=== PATIENT | male | born 1945 | race Caucasian/White ===

== ENCOUNTER 2016-07-03 08:26 | Emergency (ER) | payer MEDICARE, OTHER ==
[2016-07-03 09:02] VITALS: BP 139/45
[2016-07-03] MEDS ORDERED: Diphtheria,Pertussis(Acell),Tetanus Vaccine 0.5 ML Syringe IM ONE (09:23)
[2016-07-03] MEDS ORDERED: ceFAZolin 1 GM Vial IVPUSH ONE (09:30)
[2016-07-03] MEDS ORDERED: Sodium Chloride 0.9% 10 ML Syringe FLUSH PRN (09:30)
[2016-07-03] MEDS ORDERED: Lidocaine 1% 30 ML SDV INJECT ONE (09:37)
--- NOTE | 2016-07-05 14:08 | ER ---
Date of Service: 07/03/2016 SUBJECTIVE: Thuan presents to the emergency room with injury to the middle finger of his right hand. The patient states that he dropped a several hundred pounds spool onto his finger when he was attempting to get out of the back of his pickup. He states that he did this close to 24 hours before presenting to the emergency room. He states that he did attempt to wash it with warm water, but it was extremely painful. The patient subsequently presented to the emergency room the next day, as he wanted to "wait for the swelling to go down." The patient states that his tetanus is out of date. He states that he has had a full course of tetanus shots in the past, but he is quite sure it is close to or 10 years since he has had his last tetanus. PAST MEDICAL HISTORY: 1. Osteoarthritis. 2. Chronic left shoulder pain. 3. Hyperlipidemia. 4. Anxiety. 5. Depression. 6. Closed head injury. 7. Chronic constipation. 8. Dyslipidemia. MEDICATIONS: 1. Help Your Eyes eyedrops. 2. Pregabalin. 3. [place]-3 fatty acid. 4. Multivitamin. 5. Meloxicam. 6. Magnesium oxide. 7. Milk of magnesia. 8. Licorice root. 9. [place] 10/325. 10.[place] biloba. 11.Folic acid. 12.Stool softener. 13.Cymbalta. 14.Baclofen. 15.Acai berries. ALLERGIES: Shellfish, poultry, beef, pork, penicillin, and fish. REVIEW OF SYSTEMS: Denies any injury other than was isolated to the index finger of the right hand. He denies any injure other than was isolated to the middle finger of the right hand. PHYSICAL EXAMINATION: General: This is a 71-year-old male patient, who is in no acute distress. Vital Signs: Blood pressure is 139/45, temperature is 36.1, pulse rate 65, O2 saturations 96%. Musculoskeletal: The patient has a crush-type injury to the middle finger of the right hand. The finger is split longitudinally along the pad of the finger. He also does have an approximately 40% subungual hematoma to the medial aspect of the fingernail. The tissue is extremely edematous, and there is a large amount of tissue extending outside of the finger. Neurovascular: The patient is able to move the extremity without difficulty. RADIOGRAPHIC DATA: Radiographs of the patient's finger does reveal a fracture of the tuft of the third digit of the right hand. EMERGENCY ROOM COURSE: The laceration was irrigated with a liter of normal saline with added chlorhexidine. A digital block was placed in the base of the finger. The patient's hand was prepped and draped in the usual sterile fashion. There was a large amount of redundant tissue that was excised from the open portion of the crush injury. When the excised tissue was removed down to viable tissue, a total of 2 moderately tight sutures were used to reapproximate the crush injury as best as possible. The patient tolerated this well. He remained stable under my care in the emergency room. ASSESSMENT: Crush injury with approximately 2 cm open laceration to tip and dorsum of right middle finger. PLAN: I did speak with Dr. Perkins, the hand surgeon at [facility] regarding this patient prior to closure of the injury. He advised to debride the redundant and soiled material from the finger and reapproximate it as best as possible, stating that the finger would need to heal via secondary intention. A moist dressing was placed on the laceration. The patient was advised to follow up in the clinic on for a dressing change. IV access was established, and the patient was given 2 g of Ancef IV. He was given Tdap injection. Followup appointment with Hand surgery was established for the patient in 1 week. Followup appointment with his primary care provider was established in 1 week. All questions were answered. MWK: 07/05/2016 07:26:38 MODL: 07/05/2016 14:01:24 /[id number]
== END 2016-07-03 10:38 | disposition home or self-care (01) ==
LOC: VM.ED 08:26
DX: S62.632A Displaced fracture of distal phalanx of right middle finger, initial encounter for closed fracture (principal); S61.212A Laceration without foreign body of right middle finger without damage to nail, initial encounter; F41.9 Anxiety disorder, unspecified; F32.9 Major depressive disorder, single episode, unspecified; E78.5 Hyperlipidemia, unspecified; X58.XXXA Exposure to other specified factors, initial encounter
CPT/HCPCS: 12041; 73140; 90715; 96374; 99283; J0690

== ENCOUNTER 2016-07-15 13:07 | Emergency (ER) | payer MEDICARE, BC ==
[2016-07-15 13:28] VITALS: BP 151/70
--- NOTE | 2016-07-15 14:09 | EDM.PDOC ---
ED HPI GENERAL MEDICAL PROBLEM - General Chief Complaint: General Stated Complaint: LACERATION TO FINGER Time Seen by Provider: 07/15/16 13:09 Source of Information: Reports: Patient, RN, RN notes reviewed History Limitations: Reports: No limitations - History of Present Illness INITIAL COMMENTS - FREE TEXT/NARRATIVE: Patient presents to the ED at [facility] with concerns of non-healing wound to tip of right middle finger. Patient was seen in this ER a couple of weeks ago when he lacerated the finger. Sutures were placed. Patient was told to follow up with his PCP for recheck and possible suture removal. Patient states he did not make that appointment. Suture have been in place for well over 10 days. Today the patient was washing dishes, when he removed the dish glove, one of the suture dislodged. Patient is concerned and would like the would rechecked today. Right Middle 3-Middle finger Pain Score (Numeric/FACES): 9 - Related Data Allergies Allergy/AdvReac Type Severity Reaction Status Date / Time fish derived Allergy Anaphylactic Verified 07/15/16 13:17 Shock Penicillins Allergy Rash Verified 07/15/16 13:17 pork derived (porcine) Allergy Anaphylactic Verified 07/15/16 13:17 Shock beef derived products Allergy Anaphylactic Uncoded 07/15/16 13:17 Shock poultry Allergy Anaphylactic Uncoded 07/15/16 13:17 Shock shellfish -derived products Allergy Anaphylactic Uncoded 07/15/16 13:17 Shock Home Meds: Home Meds Acai Conti Extract [Acai Conti] 1 tab PO BID 06/09/13 [History] Docusate Sodium [Stool Softener] 400 mg PO BEDTIME 06/09/13 [History] Folic Acid 800 mcg PO DAILY 06/09/13 [History] Ginkgo Biloba 1 tab PO DAILY 06/09/13 [History] Multivitamin [Multi-Vitamin Daily] 1 each PO DAILY 06/09/13 [History] Baclofen 10 mg PO BID PRN 05/02/15 [History] DULoxetine [Cymbalta] 60 mg PO BID 05/02/15 [History] Magnesium Hydroxide [Milk of Magnesia] 30 ml PO BEDTIME PRN 03/30/16 [History] Pregabalin [Lyrica] 300 mg PO TID 03/30/16 [History] Dietary Supplement [Hyprost] 1 cap PO DAILY 04/17/16 [History] Hydrocodone/Acetaminophen [[place] 10-325 Tablet] 1 tab PO BID 04/17/16 [History] Licorice Root Extract [Licorice Root] 1 cap PO DAILY PRN 04/17/16 [History] Magnesium Oxide [Magnesium] 1 tab PO BID 04/17/16 [History] Melatonin 20 - 30 mg PO BEDTIME PRN 04/17/16 [History] [place]-3 Fatty Acids [Fish Oil] 300 mg PO DAILY 04/17/16 [History] Vit A,C & E/Lutein/Minerals [Healthy Eyes] 1 cap PO BID 04/17/16 [History] prednisoLONE Acetate [Prednisolone Acetate] 1 drop EYELF BID 04/17/16 [History] Meloxicam, Submicronized [Vivlodex] 10 mg BID 07/03/16 [History] Past Medical History HEENT History: Reports: Cataract Cardiovascular History: Reports: High cholesterol Respiratory History: Reports: None Gastrointestinal History: Reports: Chronic constipation Genitourinary History: Reports: None Musculoskeletal History: Reports: Osteoarthritis Neurological History: Reports: Concussion Psychiatric History: Reports: Addiction, Anxiety, Depression Other Psychiatric History: opiod addiction/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- [facility] [place] Endocrine/Metabolic History: Reports: None Hematologic History: Reports: Anemia Oncologic (Cancer) History: Reports: None Dermatologic History: Reports: Decubitus ulcer - Past Surgical History Head Surgeries/Procedures: Reports: None HEENT Surgical History: Reports: Cataract surgery, Other (see below) Other HEENT Surgeries/Procedures: left eye cataract removal 2007 Cardiovascular Surgical History: Reports: None Respiratory Surgical History: Reports: None Male Surgical History: Reports: Vasectomy Neurological Surgical History: Reports: None Musculoskeletal Surgical History: Reports: Arthroscopic procedure, Shoulder surgery, Other (see below) Other Musculoskeletal Surgeries/Procedures:: arthoscopic rotator cuff repair to left 1996. arthoscopic rotator cuff repair to right 1981. arthoplasty elbow total prosthetic replacement 2004. shoulder arthoplasty right 10/27/2013. steriod epidural 02/14/2016 - Past Imaging History Past Imaging History: Reports: CAT scan (Brain and cervical spine on 04/12/15), Stress testing (Exercise stress test in the 1970s), Venous doppler (Left leg on 02/14/12 and 11/15/11) Social & Family History - Family History Family Medical History: Noncontributory - Tobacco Use Smoking Status *Q: Unknown Ever Smoked Second Hand Smoke Exposure: No - Caffeine Use Caffeine Use: Reports: None - Alcohol Use Days Per Week of Alcohol Use: 0 (No previous DWIs, problems with alcohol abuse, etc.) Number of Drinks Per Day: 0 Total Drinks Per Week: 0 - Recreational Drug Use Recreational Drug Use: No Drug Use in Last 12 Months: No Recreational Drug Type: Reports: Other (see below) Recreational Drug Use Frequency: Daily - Living Situation & Occupation Living situation: Reports: (1982 second with no children from this marriage, from first in about 1981 with 4 children from that marriage) 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[employer]) ED ROS GENERAL - Review of Systems Review Of Systems: See Below Constitutional: Denies: fever, chills, weakness Respiratory: Denies: shortness of breath, cough Cardiovascular: Denies: Chest pain, Palpitations Skin: Reports: wound (right tip middle finger) Neurological: Reports: no symptoms ED EXAM, GENERAL - Physical Exam Exam: See Below Exam Limited By: No limitations General Appearance: alert, no apparent distress Respiratory/Chest: no respiratory distress, lungs clear, normal breath sounds Cardiovascular: regular rate, rhythm Neurological: alert, oriented Skin Exam: Warm, Dry, Normal color, No rash, Wound/incision (tip of right middle finger; unable to measure; one suture removed; wound is healing; no evidence of infection) Course - Vital Signs Last Recorded V/S: Last Vital Signs Temp 36.3 C 07/15/16 13:10 Pulse 73 07/15/16 13:10 Resp 16 07/15/16 13:10 BP 151/70 H 07/15/16 13:10 Pulse Ox - Orders/Labs/Meds Orders: Active Orders 24 hr Category Date Time Status Fingers Third Digit Rt F7 [CR] Stat Exams 07/15/16 13:30 Taken - Radiology Interpretation Free Text/Narrative:: There is a minimally displaced fracture of the distal tuft of the distal phalanx of the right middle finger. No additional fractures are seen. No subluxation or dislocation is seen. Stable arthritic changes are seen of the 3rd metacarpophalangeal joint. Departure - Departure Time of Disposition: 14:09 Disposition: Home, Self-Care 01 Condition: good Clinical Impression: Laceration of finger Qualifiers: Encounter type: initial encounter Qualified Code(s): S61.219A - Laceration without foreign body of unspecified finger without damage to nail, initial encounter Wound dehiscence, traumatic injury repair Qualifiers: Encounter type: initial encounter Qualified Code(s): T81.33XA - Disruption of traumatic injury wound repair, initial encounter Instructions: Laceration Care, Adult, Wound Dehiscence Forms: ED Department Discharge Additional Instructions: 1. See your Primary as symptoms warrant 2. Keep finger clean and dry - Problem List Review Problem List Initiated/Reviewed/Updated: Yes - My Orders Last 24 Hours: My Active Orders 07/15/16 13:30 Fingers Third Digit Rt F7 [CR] Stat - Assessment/Plan Last 24 Hours: My Active Orders 07/15/16 13:30 Fingers Third Digit Rt F7 [CR] Stat
== END 2016-07-15 14:18 | disposition home or self-care (01) ==
LOC: VM.ED 13:07
DX: T81.33XA Disruption of traumatic injury wound repair, initial encounter (principal); E78.00 Pure hypercholesterolemia, unspecified; M19.90 Unspecified osteoarthritis, unspecified site; F41.9 Anxiety disorder, unspecified; F32.9 Major depressive disorder, single episode, unspecified; D64.9 Anemia, unspecified; Z91.013 Allergy to seafood; Z88.0 Allergy status to penicillin; Z91.030 Bee allergy status; Z79.899 Other long term (current) drug therapy; Z98.42 Cataract extraction status, left eye; Z98.890 Other specified postprocedural states; Z88.8 Allergy status to other drugs, medicaments and biological substances
CPT/HCPCS: 73140-F7; 99282-GF; 99283

== ENCOUNTER 2017-10-12 18:07 | Emergency (ER) | payer MEDICARE, OTHER ==
[2017-10-12 18:18] VITALS: BP 129/83
[2017-10-12] MEDS ORDERED: Sulfamethoxazole/Trimethoprim 800-160 MG Tab PO ONE (19:54)
[2017-10-12] MEDS ORDERED: Take Home: Sulfamethoxazole/Trimethoprim 800-160 MG Tab, 2 Tab Pack PO ONE (19:59)
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
== END 2017-10-12 20:45 | disposition home or self-care (01) ==
LOC: VM.ED 18:07
DX: L08.9 Local infection of the skin and subcutaneous tissue, unspecified (principal); E78.00 Pure hypercholesterolemia, unspecified; F41.9 Anxiety disorder, unspecified; F32.9 Major depressive disorder, single episode, unspecified; D64.9 Anemia, unspecified; Z88.0 Allergy status to penicillin; Z91.013 Allergy to seafood; Z91.018 Allergy to other foods; Z79.899 Other long term (current) drug therapy
CPT/HCPCS: 36415; 84550; 85025; 86140; 99283; A9270; 87070; 87077

== ENCOUNTER 2020-09-19 17:05 | Emergency (ER) | payer MEDICARE, OTHER ==
--- NOTE | 2020-09-19 17:59 | EDM.PDOC ---
ED HPI GENERAL MEDICAL PROBLEM - General Chief Complaint: Respiratory Problem Stated Complaint: SOB Time Seen by Provider: 09/19/20 17:40 Source of Information: Reports: Patient, Family - History of Present Illness INITIAL COMMENTS - FREE TEXT/NARRATIVE: Ongoing cough shortness of breath left-sided rib pain since Saturday. Patient and state that they were seen Saturday at [facility] in [place] or they were diagnosed with Covid and told that he had Covid pneumonia. They were given a prescription for Decadron 4 mg 1 p.o. daily x10 days but states he did not have the money to get it filled. They deny any prescription for antibiotic. He states since being home the cough continues the shortness of breath is about the same it has not gotten any worse but he states the pain on the left side of the ribs has got little bit worse he rates it about a 5 out of 10 worse when he coughs or takes a deep breath. He denies any fatigue or malaise states he has been sleeping okay and eating okay He has no other complaints at this time Duration: Day(s): Location: Reports: Chest Improves with: Reports: Rest Worsens with: Reports: Other (cough ) Associated Symptoms: Reports: Cough, cough w sputum, Shortness of Breath. Denies: Confusion, Chest Pain, Diaphoresis, Fever/Chills, Headaches, Loss of Appetite, Malaise, Nausea/Vomiting, Rash, Seizure, Syncope, Weakness Left Thoracic Pain Score (Numeric/FACES): 5 - Related Data Allergies Allergy/AdvReac Type Severity Reaction Status Date / Time fish derived Allergy Anaphylactic Verified 09/19/20 18:38 Shock Penicillins Allergy Rash Verified 09/19/20 18:38 pork derived (porcine) Allergy Anaphylactic Verified 09/19/20 18:38 Shock beef derived products Allergy Anaphylactic Uncoded 09/19/20 18:38 Shock poultry Allergy Anaphylactic Uncoded 09/19/20 18:38 Shock shellfish -derived products Allergy Anaphylactic Uncoded 09/19/20 18:38 Shock Home Meds: Home Meds Acai Conti Extract [Acai Conti] 1 tab PO BID 06/09/13 [History] Docusate Sodium [Stool Softener] 400 mg PO BEDTIME 06/09/13 [History] Folic Acid 800 mcg PO DAILY 02/04/14 [History] Ginkgo Biloba 1 tab PO DAILY 06/09/13 [History] Multivitamin [Multi-Vitamin Daily] 1 each PO DAILY 06/09/13 [History] Baclofen 10 mg PO BID PRN 05/02/15 [History] DULoxetine [Cymbalta] 60 mg PO BID 05/02/15 [History] Magnesium Hydroxide [Milk of Magnesia] 30 ml PO BEDTIME PRN 03/30/16 [History] Pregabalin [Lyrica] 300 mg PO TID 03/30/16 [History] Dietary Supplement [Hyprost] 1 cap PO DAILY 04/17/16 [History] Hydrocodone/Acetaminophen [Parkin 10-325 Tablet] 1 tab PO BID 04/17/16 [History] Licorice Root Extract [Licorice Root] 1 cap PO DAILY PRN 04/17/16 [History] Magnesium Oxide [Magnesium] 1 tab PO BID 04/17/16 [History] Melatonin 20 - 30 mg PO BEDTIME PRN 04/17/16 [History] Whitman-3 Fatty Acids [Fish Oil] 300 mg PO DAILY 04/17/16 [History] Vits A,C,E/Lutein/Minerals [Healthy Eyes] 1 cap PO BID 04/17/16 [History] prednisoLONE Acetate [Prednisolone Acetate] 1 drop EYELF BID 04/17/16 [History] Meloxicam, Submicronized [Vivlodex] 10 mg BID 07/03/16 [History] Past Medical History HEENT History: Reports: Cataract Cardiovascular History: Reports: High Cholesterol Respiratory History: Reports: None Gastrointestinal History: Reports: Chronic Constipation Genitourinary History: Reports: None Musculoskeletal History: Reports: Osteoarthritis Neurological History: Reports: Concussion Psychiatric History: Reports: Addiction, Anxiety, Depression Other Psychiatric History: opiod addiction/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- pain contract current with [place], [place] Endocrine/Metabolic History: Reports: None Hematologic History: Reports: Anemia Oncologic (Cancer) History: Reports: None Dermatologic History: Reports: Decubitus Ulcer - Infectious Disease History Infectious Disease History: Reports: MRSA - Past Surgical History Head Surgeries/Procedures: Reports: None HEENT Surgical History: Reports: Cataract Surgery, Other (See Below) Respiratory Surgical History: Reports: None GI Surgical History: Reports: Appendectomy, Hernia, Inguinal Male Surgical History: Reports: Vasectomy Neurological Surgical History: Reports: None Musculoskeletal Surgical History: Reports: Arthroscopic Procedure, Shoulder Surgery, Other (See Below) - Past Imaging History Past Imaging History: Reports: CAT Scan, Stress Testing, Venous Doppler Social & Family History - Family History Family Medical History: No Pertinent Family History - Caffeine Use Caffeine Use: Reports: None - Living Situation & Occupation Living situation: Reports: Occupation: Employed ED ROS GENERAL - Review of Systems Review Of Systems: See Below Constitutional: Reports: No Symptoms. Denies: Fever, Chills, Malaise, Weakness, Fatigue HEENT: Reports: No Symptoms Respiratory: Reports: Shortness of Breath, Pleuritic Chest Pain, Cough, Sputum. Denies: Wheezing, Hemoptysis Cardiovascular: Reports: No Symptoms Endocrine: Reports: No Symptoms GI/Abdominal: Reports: No Symptoms : Reports: No Symptoms Musculoskeletal: Reports: No Symptoms Skin: Reports: No Symptoms Neurological: Reports: No Symptoms Psychiatric: Reports: No Symptoms Hematologic/Lymphatic: Reports: No Symptoms Immunologic: Reports: No Symptoms ED EXAM, GENERAL - Physical Exam Exam: See Below Exam Limited By: No Limitations General Appearance: Alert, WD/WN, No Apparent Distress, Other (Patient walks into the emergency room no acute distress no respiratory issues noted) Eye Exam: Bilateral Eye: EOMI, Normal Inspection, PERRL Ears: Normal External Exam, Normal Canal, Hearing Grossly Normal, Normal TMs Nose: Normal Inspection, Normal Mucosa, No Blood Throat/Mouth: Normal Inspection, Normal Lips, Normal Teeth, Normal Gums, Normal Oropharynx, Normal Voice, No Airway Compromise Head: Atraumatic, Normocephalic Neck: Normal Inspection, Supple, Non-Tender, Full Range of Motion Respiratory/Chest: No Respiratory Distress, Lungs Clear, Normal Breath Sounds, No Accessory Muscle Use, Chest Non-Tender Cardiovascular: Normal Peripheral Pulses, Regular Rate, Rhythm, No Edema, No Gallop, No JVD, No Murmur, No Rub GI/Abdominal: Normal Bowel Sounds, Soft, Non-Tender, No Organomegaly, No Distention Back Exam: Normal Inspection, Full Range of Motion Extremities: Normal Inspection, Normal Range of Motion, Non-Tender, No Pedal Edema, Normal Capillary Refill Neurological: Alert, Oriented, CN II-XII Intact, Normal Cognition, Normal Gait, Normal Reflexes, No Motor/Sensory Deficits Psychiatric: Normal Affect, Normal Mood Skin Exam: Warm, Dry, Intact, Normal Color, No Rash Lymphatic: No Adenopathy Course - Vital Signs Text/Narrative:: CBC BMP chest x-ray Lab work within normal limits Chest x-ray shows mild patchy bilateral infiltrates We will treat patient with Rocephin 1 g IM daily Zithromax 500 mg p.o. today Decadron 8 mg IM today will be given a prescription for Zithromax 251 p.o. daily x4 days he has a prescription for Decadron which he has not filled yet for 10 days He will also be given a prescription for albuterol inhaler 1 to 2 puffs every 4 to 6 hours as needed dispense #1 Last Recorded V/S: Last Vital Signs Temp 36.3 C 09/19/20 17:35 Pulse 98 09/19/20 17:35 Resp 20 09/19/20 17:35 BP 136/91 H 09/19/20 17:35 Pulse Ox 98 09/19/20 17:35 - Orders/Labs/Meds Labs: Laboratory Tests 09/19/20 09/19/20 Range/Units 18:10 18:10 WBC 4.9 (4.0-10.0) x10^3/uL RBC 5.37 (4.5-6.0) x10^6/uL Hgb 16.1 (14.0-18.0) g/dL Hct 46.9 (40.0-52.0) % MCV 87.3 (78.0-93.0) fL MCH 30.0 (26.0-32.0) pg MCHC 34.3 (32.0-36.0) g/dL RDW Coeff of Preeti 15.1 H (10.0-15.0) % Plt Count 94 L (130-400) x10^3/uL Neut % (Auto) 64.0 (50.0-80.0) % Lymph % (Auto) 22.0 L (25.0-50.0) % [place] % (Auto) 13.2 H (2.0-11.0) % Eos % (Auto) 0.6 (0.0-4.0) % Baso % (Auto) 0.2 (0.2-1.2) % Sodium 134 L (136-145) mmol/L Potassium 3.9 (3.5-5.1) mmol/L Chloride 98 (98-107) mmol/L Carbon Dioxide 23 (21-32) mmol/L Anion Gap 16.9 H (5-15) mmol/L BUN 16 (7-18) mg/dL Creatinine 1.2 (0.70-1.30) mg/dL Est Cr Clr Drug Dosing TNP Estimated GFR (MDRD) 59 Glucose 96 (70-99) mg/dL Calcium 8.4 L (8.5-10.1) mg/dL Meds: Medications Discontinued Medications Generic Name Dose Route Start Last Admin Trade Name Jose PRN Reason Stop Dose Admin Azithromycin 500 mg 09/19/20 19:23 Azithromycin 250 Mg Tab PO 09/19/20 19:24 ONETIME ONE Ceftriaxone Sodium 1 gm 09/19/20 19:23 Ceftriaxone 1 Gm Vial IM 09/19/20 19:24 ONETIME ONE Dexamethasone 8 mg 09/19/20 19:23 Dexamethasone 4 Mg/Ml Sdv IM 09/19/20 19:24 ONETIME ONE Departure - Departure Time of Disposition: 19:30 Disposition: Home, Self-Care 01 Condition: Good Clinical Impression: Pneumonia, Cough - Discharge Information *PRESCRIPTION DRUG MONITORING PROGRAM REVIEWED*: No *COPY OF PRESCRIPTION DRUG MONITORING REPORT IN PATIENT LUZ: No Instructions: Shortness of Breath, Adult, [id number], Community-Acquired Pneumonia, Adult Referrals: Montez Etienne PA [Primary Care Provider] - Forms: ED Department Discharge Sepsis Event Note (ED) - Focused Exam Vital Signs: Vital Signs Temp Pulse Resp BP Pulse Ox 09/19/20 17:35 36.3 C 98 20 136/91 H 98 - Problem List & Annotations (1) Cough SNOMED Code(s): 76776489 Code(s): R05 - COUGH Status: Acute Current Visit: Yes (2) Pneumonia SNOMED Code(s): 469134182 Code(s): J18.9 - PNEUMONIA, UNSPECIFIED ORGANISM Status: Acute Current Visit: Yes
[2020-09-19 18:34] LABS: CHLORIDE,CL 98 mmol/L (98-107); SODIUM,NA 134 mmol/L (136-145)
[2020-09-19 18:35] VITALS: BP 136/91; PULSE 98
[2020-09-19 18:36] LABS: ANION GAP 16.9 mmol/L (5-15)
--- NOTE | 2020-09-19 19:11 | CR ---
[id number] RAD/RAD Chest PA or AP 1V EXAM: FRONTAL CHEST INDICATION: COUGH, COVID-19. COMPARISON: April 16, 2016. DISCUSSION: Mild patchy bilateral infiltrates compatible the clinical history of COVID 19 pneumonia. Bilateral shoulder arthroplasties. Normal heart size. No pleural effusions. IMPRESSION: 1. Mild patchy bilateral infiltrates. Renan Sellers MD 09/19/20 [id number] Thank you for allowing us to participate in the care of your patient.
[2020-09-19] MEDS: Dexamethasone 4 MG/ML SDV IM ONE (19:59)
[2020-09-19] MEDS: Azithromycin 250 MG Tab PO ONE (20:00)
[2020-09-19] MEDS: cefTRIAXone 1 GM Vial IM ONE (20:00)
[2020-09-19] MEDS ORDERED: Dexamethasone 4 MG/ML SDV ONE (20:05)
== END 2020-09-19 20:15 | disposition home or self-care (01) ==
LOC: VM.ED 17:05
DX: J18.9 Pneumonia, unspecified organism (principal); Z91.013 Allergy to seafood; Z88.0 Allergy status to penicillin; Z79.899 Other long term (current) drug therapy
CPT/HCPCS: 36415; 71045; 80048; 85025; 96372; 99284; 99285-25; A9270-GY; J0696; J1100

== ENCOUNTER 2020-09-22 10:48 | Inpatient (IN) | payer MEDICARE, OTHER ==
[2020-09-22] MEDS ORDERED: Morphine 4 MG/ML Syringe IVPUSH ONE (11:41)
[2020-09-22] MEDS ORDERED: Ondansetron 4 MG/2 ML SDV IVPUSH ONE (11:49)
[2020-09-22] MEDS ORDERED: Sodium Chloride 0.9% 1,000 ML IV ONE (12:11)
[2020-09-22 12:41] LABS: ANION GAP 14.7 mmol/L (5-15); CHLORIDE,CL 100 mmol/L (98-107); SODIUM,NA 138 mmol/L (136-145)
--- NOTE | 2020-09-22 12:41 | EDM.PDOC ---
ED HPI GENERAL MEDICAL PROBLEM - General Chief Complaint: General Stated Complaint: WEAKNESS-COVID Time Seen by Provider: 09/22/20 11:00 Source of Information: Reports: Patient History Limitations: Reports: No Limitations - History of Present Illness INITIAL COMMENTS - FREE TEXT/NARRATIVE: Pt. presents to ER with complaints of cough, chest congestion, L lateral chest pain, and shortness of breath. Pt. was seen in ER on 09/19 with complaints of similar symptoms. Pt. was diagnosed with covid 19 and was seen in [facility] on 09/17/2020 and was worked up and discharged. He has not had bamlanivimab or etesevimab during either hospitalization. Pt. states that he is not able to take care of himself at home. He states that he is too weak to walk or care for himself at home. He lives in [place], [place] and they have no transportation. EMS was summoned to transport the patient and his to the ER. Pt. did not require any supplemental O2 during transport. In reviewing his chart, it appears he gets care at both [facility] in [place] and [facility]. Pt. denies any substernal chest pain. No jaw, arm, neck or back pain. Denies any nausea or vomiting. He has been febrile. Denies any rashes. No headache or congestion. No nausea, vomiting, or diarrhea. Onset: Today Onset Date: 09/22/20 Associated Symptoms: Reports: Cough, Malaise, Shortness of Breath, Weakness Left Thoracic Pain Score (Numeric/FACES): 5 - Related Data Allergies Allergy/AdvReac Type Severity Reaction Status Date / Time fish derived Allergy Anaphylactic Verified 09/19/20 18:38 Shock Penicillins Allergy Rash Verified 09/19/20 18:38 pork derived (porcine) Allergy Anaphylactic Verified 09/19/20 18:38 Shock beef derived products Allergy Anaphylactic Uncoded 09/19/20 18:38 Shock poultry Allergy Anaphylactic Uncoded 09/19/20 18:38 Shock shellfish -derived products Allergy Anaphylactic Uncoded 09/19/20 18:38 Shock Home Meds: Home Meds Acai Conti Extract [Acai Conti] 1 tab PO BID 06/09/13 [History] Docusate Sodium [Stool Softener] 400 mg PO BEDTIME 06/09/13 [History] Folic Acid 800 mcg PO DAILY 06/09/13 [History] Ginkgo Biloba 1 tab PO DAILY 06/09/13 [History] Multivitamin [Multi-Vitamin Daily] 1 each PO DAILY 06/09/13 [History] Baclofen 10 mg PO BID PRN 05/02/15 [History] DULoxetine [Cymbalta] 60 mg PO DAILY 05/02/15 [History] Magnesium Hydroxide [Milk of Magnesia] 30 ml PO BEDTIME PRN 03/30/16 [History] Pregabalin [Lyrica] 300 mg PO TID 03/30/16 [History] Hydrocodone/Acetaminophen [[place] 10-325 Tablet] 1 tab PO Q6HR PRN 04/17/16 [History] Licorice Root Extract [Licorice Root] 1 cap PO BID 04/17/16 [History] Magnesium Oxide [Magnesium] 1 tab PO BID 04/17/16 [History] Melatonin 20 - 30 mg PO BEDTIME PRN 04/17/16 [History] Hematite-3 Fatty Acids [Fish Oil] 300 mg PO DAILY 04/17/16 [History] Vits A,C,E/Lutein/Minerals [Healthy Eyes] 1 cap PO BID 04/17/16 [History] prednisoLONE Acetate [Prednisolone Acetate] 1 drop EYELF BID 04/17/16 [History] Naproxen [Naprosyn] 1 tab PO BID PRN 09/22/20 [History] Past Medical History HEENT History: Reports: Cataract Cardiovascular History: Reports: High Cholesterol Respiratory History: Reports: None Gastrointestinal History: Reports: Chronic Constipation Genitourinary History: Reports: None Musculoskeletal History: Reports: Osteoarthritis Neurological History: Reports: Concussion Psychiatric History: Reports: Addiction, Anxiety, Depression Other Psychiatric History: opiod addiction/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- pain contract current with [place], [place] Endocrine/Metabolic History: Reports: None Hematologic History: Reports: Anemia Oncologic (Cancer) History: Reports: None Dermatologic History: Reports: Decubitus Ulcer - Infectious Disease History Infectious Disease History: Reports: MRSA - Past Surgical History Head Surgeries/Procedures: Reports: None HEENT Surgical History: Reports: Cataract Surgery, Other (See Below) Other HEENT Surgeries/Procedures: left eye cataract removal 2007 Cardiovascular Surgical History: Reports: None Respiratory Surgical History: Reports: None GI Surgical History: Reports: Appendectomy, Hernia, Inguinal Male Surgical History: Reports: Vasectomy Neurological Surgical History: Reports: None Musculoskeletal Surgical History: Reports: Arthroscopic Procedure, Shoulder Surgery, Other (See Below) Other Musculoskeletal Surgeries/Procedures:: arthoscopic rotator cuff repair to left 1996. arthoscopic rotator cuff repair to right 1981. arthoplasty elbow total prosthetic replacement 2004. shoulder arthoplasty right 10/27/2013. steriod epidural 02/14/2016 - Past Imaging History Past Imaging History: Reports: CAT Scan, Stress Testing, Venous Doppler Social & Family History - Family History Family Medical History: No Pertinent Family History - Caffeine Use Caffeine Use: Reports: None - Living Situation & Occupation Living situation: Reports: Occupation: Employed ED ROS GENERAL - Review of Systems Review Of Systems: See Below Constitutional: Reports: Fever, Chills, Malaise, Weakness, Fatigue HEENT: Reports: No Symptoms Respiratory: Reports: Shortness of Breath, Pleuritic Chest Pain Cardiovascular: Reports: No Symptoms Endocrine: Reports: No Symptoms GI/Abdominal: Reports: No Symptoms : Reports: No Symptoms Musculoskeletal: Reports: Other (Respirophasic L sided chest pain) Skin: Reports: Pallor Neurological: Reports: No Symptoms Psychiatric: Reports: No Symptoms Hematologic/Lymphatic: Reports: No Symptoms Immunologic: Reports: No Symptoms ED EXAM, GENERAL - Physical Exam Exam: See Below Exam Limited By: No Limitations General Appearance: Alert, WD/WN, No Apparent Distress Throat/Mouth: Normal Inspection, Normal Lips, Normal Teeth, Normal Oropharynx, Normal Voice, No Airway Compromise Head: Atraumatic, Normocephalic Neck: Normal Inspection, Supple, Non-Tender, Full Range of Motion Respiratory/Chest: No Accessory Muscle Use, Decreased Breath Sounds, Crackles Cardiovascular: Normal Peripheral Pulses, Regular Rate, Rhythm, No Edema, No JVD Peripheral Pulses: 4+: Radial (L) GI/Abdominal: Soft, Non-Tender, No Distention, No Mass (Male) Exam: Deferred Rectal (Males) Exam: Deferred Back Exam: Normal Inspection, Full Range of Motion Extremities: Normal Inspection, Normal Range of Motion, Non-Tender, No Pedal Edema, Normal Capillary Refill Neurological: Alert, Oriented, CN II-XII Intact, Normal Cognition, Normal Reflexes, No Motor/Sensory Deficits Psychiatric: Normal Affect, Normal Mood Skin Exam: Warm, Dry, Intact, Normal Color, No Rash Lymphatic: No Adenopathy Course - Vital Signs Last Recorded V/S: Last Vital Signs Temp 36.7 C 09/22/20 12:30 Pulse 71 09/22/20 12:30 Resp 16 09/22/20 12:30 BP 137/73 09/22/20 12:30 Pulse Ox 92 L 09/22/20 12:30 - Orders/Labs/Meds Orders: Active Orders 24 hr Category Date Time Status CULTURE BLOOD [BC] Stat Lab 09/22/20 11:40 Received CULTURE BLOOD [BC] Stat Lab 09/22/20 12:05 Received Sodium Chloride 0.9% [Saline Flush] Med 09/22/20 11:37 Active 10 ml FLUSH ASDIRECTED PRN Blood Culture x2 Reflex Set [OM.PC] Stat Oth 09/22/20 11:37 Ordered Peripheral IV Insertion Adult [OM.PC] Routine Oth 09/22/20 11:37 Ordered Medication Orders Remdesivir 100 mg/ Sodium (Chloride) 100 mls @ 100 mls/hr IV Q24H YAMEL Stop: 09/26/20 16:29 Sodium Chloride (Sodium Chloride 0.9% 10 Ml Syringe) 10 ml FLUSH ASDIRECTED PRN PRN Reason: Keep Vein Open Labs: Laboratory Tests 09/22/20 09/22/20 09/22/20 Range/Units 11:40 11:40 11:40 WBC 14.1 H (4.0-10.0) x10^3/uL RBC 5.71 (4.5-6.0) x10^6/uL Hgb 17.2 (14.0-18.0) g/dL Hct 50.0 (40.0-52.0) % MCV 87.6 (78.0-93.0) fL MCH 30.1 (26.0-32.0) pg MCHC 34.4 (32.0-36.0) g/dL RDW Coeff of Preeti 15.7 H (10.0-15.0) % Plt Count 146 (130-400) x10^3/uL Add Manual Diff Yes Neutrophils % (Manual) 73 (50-80) % Band Neutrophils % 5 (0-6) % Lymphocytes % (Manual) 16 L (25-50) % Monocytes % (Manual) 6 (2-11) % Platelet Estimate Adequate Anisocytosis 1+ slight H PT 10.3 (9.9-12.5) SEC INR 0.9 L (2.0-3.5) APTT 22.6 L (25.6-32.8) SEC D-Dimer, Quantitative 1.08 H (<=0.58) mg/LFEU Sodium 138 (136-145) mmol/L Potassium 3.7 (3.5-5.1) mmol/L Chloride 100 (98-107) mmol/L Carbon Dioxide 27 (21-32) mmol/L Anion Gap 14.7 (5-15) mmol/L BUN 28 H (7-18) mg/dL Creatinine 1.1 (0.70-1.30) mg/dL Est Cr Clr Drug Dosing TNP Estimated GFR (MDRD) > 60 Glucose 112 H (70-99) mg/dL Lactic Acid (0.4-2.0) mmol/L Calcium 9.0 (8.5-10.1) mg/dL Corrected Calcium 9.3 (8.5-10.1) mg/dL Magnesium 2.7 H (1.8-2.4) mg/dL Ferritin (26-388) ng/mL Total Bilirubin 0.5 (0.2-1.0) mg/dL AST 129 H (15-37) U/L ALT 207 H (16-63) U/L Alkaline Phosphatase 77 (46-116) U/L Lactate Dehydrogenase 296 H (85-227) U/L Troponin I High Sens 7 (<=76) ng/L C-Reactive Protein 1.9 H (<=0.9) mg/dL Total Protein 8.7 H (6.4-8.2) g/dL Albumin 3.6 (3.4-5.0) g/dL Globulin 5.1 Albumin/Globulin Ratio 0.71 09/22/20 09/22/20 Range/Units 11:40 11:40 WBC (4.0-10.0) x10^3/uL RBC (4.5-6.0) x10^6/uL Hgb (14.0-18.0) g/dL Hct (40.0-52.0) % MCV (78.0-93.0) fL MCH (26.0-32.0) pg MCHC (32.0-36.0) g/dL RDW Coeff of Preeti (10.0-15.0) % Plt Count (130-400) x10^3/uL Add Manual Diff Neutrophils % (Manual) (50-80) % Band Neutrophils % (0-6) % Lymphocytes % (Manual) (25-50) % Monocytes % (Manual) (2-11) % Platelet Estimate Anisocytosis PT (9.9-12.5) SEC INR (2.0-3.5) APTT (25.6-32.8) SEC D-Dimer, Quantitative (<=0.58) mg/LFEU Sodium (136-145) mmol/L Potassium (3.5-5.1) mmol/L Chloride (98-107) mmol/L Carbon Dioxide (21-32) mmol/L Anion Gap (5-15) mmol/L BUN (7-18) mg/dL Creatinine (0.70-1.30) mg/dL Est Cr Clr Drug Dosing Estimated GFR (MDRD) Glucose (70-99) mg/dL Lactic Acid 1.6 (0.4-2.0) mmol/L Calcium (8.5-10.1) mg/dL Corrected Calcium (8.5-10.1) mg/dL Magnesium (1.8-2.4) mg/dL Ferritin 327 (26-388) ng/mL Total Bilirubin (0.2-1.0) mg/dL AST (15-37) U/L ALT (16-63) U/L Alkaline Phosphatase (46-116) U/L Lactate Dehydrogenase (85-227) U/L Troponin I High Sens (<=76) ng/L C-Reactive Protein (<=0.9) mg/dL Total Protein (6.4-8.2) g/dL Albumin (3.4-5.0) g/dL Globulin Albumin/Globulin Ratio Meds: Medications Generic Name Dose Route Start Last Admin Trade Name Freq PRN Reason Stop Dose Admin Remdesivir 100 mg/ Sodium 100 mls @ 100 mls/hr 09/23/20 15:30 Chloride IV 09/26/20 16:29 Q24H YAMEL Sodium Chloride 10 ml 09/22/20 11:37 Sodium Chloride 0.9% 10 Ml Syringe FLUSH ASDIRECTED PRN Keep Vein Open Discontinued Medications Generic Name Dose Route Start Last Admin Trade Name Freq PRN Reason Stop Dose Admin Sodium Chloride 1,000 mls @ 999 mls/hr 09/22/20 12:11 09/22/20 11:45 Normal Saline IV 09/22/20 13:11 999 mls/hr ONETIME ONE Administration Remdesivir 200 mg/ Sodium 250 mls @ 250 mls/hr 09/22/20 15:00 Chloride IV 09/22/20 15:59 ONETIME ONE Iopamidol 100 ml 09/22/20 13:52 09/22/20 14:33 Iopamidol 612 Mg/Ml 100 Ml Bottle IVPUSH 09/22/20 13:53 100 ml ONETIME ONE Administration Morphine Sulfate 4 mg 09/22/20 11:41 09/22/20 12:10 Morphine 4 Mg/Ml Syringe IVPUSH 09/22/20 11:42 4 mg ONETIME ONE Administration Ondansetron HCl 4 mg 09/22/20 11:49 09/22/20 12:11 Ondansetron 4 Mg/2 Ml Sdv IVPUSH 09/22/20 11:50 4 mg ONETIME ONE Administration Departure - Departure Time of Disposition: 16:00 Disposition: Home, Self-Care 01 Clinical Impression: Pneumonia due to COVID-19 virus - Discharge Information Sepsis Event Note (ED) - Focused Exam Vital Signs: Vital Signs Temp Pulse Resp BP Pulse Ox 09/22/20 12:30 36.7 C 71 16 137/73 92 L - Problem List Review Problem List Initiated/Reviewed/Updated: Yes - My Orders Last 24 Hours: My Active Orders 09/22/20 11:37 Sodium Chloride 0.9% [Saline Flush] 10 ml FLUSH ASDIRECTED PRN Blood Culture x2 Reflex Set [OM.PC] Stat Peripheral IV Insertion Adult [OM.PC] Routine 09/22/20 11:40 CULTURE BLOOD [BC] Stat 09/22/20 12:05 CULTURE BLOOD [BC] Stat - Assessment/Plan Last 24 Hours: My Active Orders 09/22/20 11:37 Sodium Chloride 0.9% [Saline Flush] 10 ml FLUSH ASDIRECTED PRN Blood Culture x2 Reflex Set [OM.PC] Stat Peripheral IV Insertion Adult [OM.PC] Routine 09/22/20 11:40 CULTURE BLOOD [BC] Stat 09/22/20 12:05 CULTURE BLOOD [BC] Stat Plan: Pt. will be admitted observation. CT angiogram of chest was negative for PE. Pt. indicates that he is a code 2, DNR/DNI. He is currently on room air. Pt. was started on remdisivir (200mg loading dose and 100mg daily thereafter). No further IV fluids at this time. Will encourage intake of oral fluids. Pt. will be covered for DVT prophylaxis with lovenox.
[2020-09-22 12:50] LABS: PTT,PARTIAL THROMBOPLSTIN TIME 22.6 SEC (25.6-32.8)
[2020-09-22] MEDS ORDERED: Iopamidol 612 MG/ML 100 ML Bottle IVPUSH ONE (13:52)
[2020-09-22] MEDS ORDERED: REMDESIVIR 200 MG in Sodium Chloride 0.9% 250 ML IV ONE ×2 (13:59→15:00)
--- NOTE | 2020-09-22 15:09 | CT ---
[id number] CT/CTA Chest EXAM: CT ANGIOGRAM CHEST INDICATION: ELEVATED D - DIMER WITH POSITIVE COVID. COMPARISON: September 19, 2020. DISCUSSION: The pulmonary arteries are normal in appearance with no emboli identified. Bilateral peripheral predominant groundglass and crazy paving pattern pulmonary opacities in all lobes and occasional areas of consolidation are compatible with the clinical history of COVID pneumonia. Dependent atelectasis in both lower lobes. The heart is mildly enlarged with no definite evidence of edema. Atherosclerotic plaque in the aorta and its major branches including the coronary arteries. Bronchial wall thickening suggests underlying bronchitis. Mildly enlarged subcarinal node measuring 44 x 12 mm and a right hilar node measuring 17 x 13 mm. These changes could be reactive or neoplastic and follow-up chest imaging is suggested in 3-6 months after resolution of COVID pneumonia to further evaluate. Hepatic steatosis. The imaged upper abdomen is otherwise unremarkable. Bilateral shoulder arthroplasties. The imaged osseous structures are otherwise unremarkable. 1. Negative for pulmonary embolism. 2. Multifocal groundglass opacities and crazy-paving pattern consistent with the clinical history of colon pneumonia. 3. Mild nonspecific subcarinal and right hilar lymphadenopathy. Consider follow-up chest CT in 3-6 months. Renan Sellers MD 09/22/20 2030 Thank you for allowing us to participate in the care of your patient.
[2020-09-22] MEDS ORDERED: Magnesium Hydroxide 400 MG/5 ML Susp 30 ML Cup PO PRN (17:22)
[2020-09-22] MEDS ORDERED: Baclofen 10 MG Tab PO PRN (17:22)
[2020-09-22] MEDS: Morphine 4 MG/ML Syringe IVPUSH PRN (19:27)
[2020-09-22] MEDS: Enoxaparin 40 MG/0.4 ML Syringe SUBCUT SCH (19:28)
[2020-09-22] MEDS: prednisoLONE Acetate 1% Ophth Susp 5 ML Bottle EYELF SCH (20:17)
[2020-09-22] MEDS: Docusate Sodium 100 MG Cap PO SCH (20:18)
[2020-09-22] MEDS: Beta-Carotene (Vitamin A) w/Vitamin C & E plus Minerals Tab PO SCH (20:19)
[2020-09-22] MEDS: Magnesium Oxide 400 MG Tab PO SCH (20:19)
[2020-09-22] MEDS: Acetaminophen/HYDROcodone 325-10 MG Tab PO PRN (20:20)
[2020-09-23] MEDS: Morphine 4 MG/ML Syringe IVPUSH PRN (07:25)
[2020-09-23 07:30] LABS: ANION GAP 12.9 mmol/L (5-15); CHLORIDE,CL 103 mmol/L (98-107); SODIUM,NA 139 mmol/L (136-145)
[2020-09-23] MEDS ORDERED: Ondansetron 4 MG/2 ML SDV IVPUSH PRN (08:47)
--- NOTE | 2020-09-23 08:54 | PCM.PN ---
- General Info Date of Service: 09/23/20 Subjective Update: Pt. states that he had a poor night. He is continuing to experience the respirophasic chest pain. CTA of chest performed yesterday was negative for PE. There was evidence of viral pneumonia (in lobar infiltrate noted). He was started on Remdesivir, and this AM he states that he was quite nauseated. He continues to be quite short of breath with activity. Pt. is currently on lovenox for DVT prophylaxis. Pt. is on [place] 10/325mg every 6 hours with morphine 4mg every 6 hours for breakthrough pain. He has not been up to the toilet and is using a urinal. Functional Status: Reports: Urinating - Review of Systems General: Reports: No Symptoms HEENT: Reports: No Symptoms Pulmonary: Reports: Shortness of Breath, Pleuritic Chest Pain Cardiovascular: Reports: No Symptoms Gastrointestinal: Reports: Nausea Genitourinary: Reports: No Symptoms Musculoskeletal: Reports: No Symptoms Skin: Reports: No Symptoms Neurological: Reports: No Symptoms Psychiatric: Reports: No Symptoms - Patient Data Vitals - Most Recent: Last Vital Signs Temp 36.7 C 09/23/20 06:00 Pulse 83 09/23/20 06:00 Resp 18 09/23/20 06:00 BP 122/83 09/23/20 06:00 Pulse Ox 91 L 09/23/20 06:00 Weight - Most Recent: 92.986 kg I&O - Last 24 Hours: Intake & Output 09/22/20 09/23/20 09/23/20 22:59 06:59 14:59 Intake Total 250 Output Total 600 800 Balance -350 -800 Lab Results Last 24 Hours: Laboratory Results - last 24 hr 09/22/20 09/22/20 09/22/20 Range/Units 11:40 11:40 11:40 WBC 14.1 H (4.0-10.0) x10^3/uL RBC 5.71 (4.5-6.0) x10^6/uL Hgb 17.2 (14.0-18.0) g/dL Hct 50.0 (40.0-52.0) % MCV 87.6 (78.0-93.0) fL MCH 30.1 (26.0-32.0) pg MCHC 34.4 (32.0-36.0) g/dL RDW Coeff of Preeti 15.7 H (10.0-15.0) % Plt Count 146 (130-400) x10^3/uL Add Manual Diff Yes Neutrophils % (Manual) 73 (50-80) % Band Neutrophils % 5 (0-6) % Lymphocytes % (Manual) 16 L (25-50) % Monocytes % (Manual) 6 (2-11) % Platelet Estimate Adequate Anisocytosis 1+ slight H PT 10.3 (9.9-12.5) SEC INR 0.9 L (2.0-3.5) APTT 22.6 L (25.6-32.8) SEC D-Dimer, Quantitative 1.08 H (<=0.58) mg/LFEU Sodium 138 (136-145) mmol/L Potassium 3.7 (3.5-5.1) mmol/L Chloride 100 (98-107) mmol/L Carbon Dioxide 27 (21-32) mmol/L Anion Gap 14.7 (5-15) mmol/L BUN 28 H (7-18) mg/dL Creatinine 1.1 (0.70-1.30) mg/dL Est Cr Clr Drug Dosing TNP Estimated GFR (MDRD) > 60 Glucose 112 H (70-99) mg/dL Lactic Acid (0.4-2.0) mmol/L Calcium 9.0 (8.5-10.1) mg/dL Corrected Calcium 9.3 (8.5-10.1) mg/dL Magnesium 2.7 H (1.8-2.4) mg/dL Ferritin (26-388) ng/mL Total Bilirubin 0.5 (0.2-1.0) mg/dL AST 129 H (15-37) U/L ALT 207 H (16-63) U/L Alkaline Phosphatase 77 (46-116) U/L Lactate Dehydrogenase 296 H (85-227) U/L Troponin I High Sens 7 (<=76) ng/L C-Reactive Protein 1.9 H (<=0.9) mg/dL Total Protein 8.7 H (6.4-8.2) g/dL Albumin 3.6 (3.4-5.0) g/dL Globulin 5.1 Albumin/Globulin Ratio 0.71 09/22/20 09/22/20 09/23/20 Range/Units 11:40 11:40 07:00 WBC 8.7 (4.0-10.0) x10^3/uL RBC 5.50 (4.5-6.0) x10^6/uL Hgb 16.4 (14.0-18.0) g/dL Hct 48.2 (40.0-52.0) % MCV 87.6 (78.0-93.0) fL MCH 29.8 (26.0-32.0) pg MCHC 34.0 (32.0-36.0) g/dL RDW Coeff of Preeti 15.6 H (10.0-15.0) % Plt Count 146 (130-400) x10^3/uL Add Manual Diff Neutrophils % (Manual) (50-80) % Band Neutrophils % (0-6) % Lymphocytes % (Manual) (25-50) % Monocytes % (Manual) (2-11) % Platelet Estimate Anisocytosis PT (9.9-12.5) SEC INR (2.0-3.5) APTT (25.6-32.8) SEC D-Dimer, Quantitative (<=0.58) mg/LFEU Sodium (136-145) mmol/L Potassium (3.5-5.1) mmol/L Chloride (98-107) mmol/L Carbon Dioxide (21-32) mmol/L Anion Gap (5-15) mmol/L BUN (7-18) mg/dL Creatinine (0.70-1.30) mg/dL Est Cr Clr Drug Dosing Estimated GFR (MDRD) Glucose (70-99) mg/dL Lactic Acid 1.6 (0.4-2.0) mmol/L Calcium (8.5-10.1) mg/dL Corrected Calcium (8.5-10.1) mg/dL Magnesium (1.8-2.4) mg/dL Ferritin 327 (26-388) ng/mL Total Bilirubin (0.2-1.0) mg/dL AST (15-37) U/L ALT (16-63) U/L Alkaline Phosphatase (46-116) U/L Lactate Dehydrogenase (85-227) U/L Troponin I High Sens (<=76) ng/L C-Reactive Protein (<=0.9) mg/dL Total Protein (6.4-8.2) g/dL Albumin (3.4-5.0) g/dL Globulin Albumin/Globulin Ratio 09/23/20 Range/Units 07:00 WBC (4.0-10.0) x10^3/uL RBC (4.5-6.0) x10^6/uL Hgb (14.0-18.0) g/dL Hct (40.0-52.0) % MCV (78.0-93.0) fL MCH (26.0-32.0) pg MCHC (32.0-36.0) g/dL RDW Coeff of Preeti (10.0-15.0) % Plt Count (130-400) x10^3/uL Add Manual Diff Neutrophils % (Manual) (50-80) % Band Neutrophils % (0-6) % Lymphocytes % (Manual) (25-50) % Monocytes % (Manual) (2-11) % Platelet Estimate Anisocytosis PT (9.9-12.5) SEC INR (2.0-3.5) APTT (25.6-32.8) SEC D-Dimer, Quantitative (<=0.58) mg/LFEU Sodium 139 (136-145) mmol/L Potassium 3.9 (3.5-5.1) mmol/L Chloride 103 (98-107) mmol/L Carbon Dioxide 27 (21-32) mmol/L Anion Gap 12.9 (5-15) mmol/L BUN 21 H (7-18) mg/dL Creatinine 0.9 (0.70-1.30) mg/dL Est Cr Clr Drug Dosing 70.72 Estimated GFR (MDRD) > 60 Glucose 94 (70-99) mg/dL Lactic Acid (0.4-2.0) mmol/L Calcium 9.0 (8.5-10.1) mg/dL Corrected Calcium 9.7 (8.5-10.1) mg/dL Magnesium (1.8-2.4) mg/dL Ferritin (26-388) ng/mL Total Bilirubin 0.5 (0.2-1.0) mg/dL AST 112 H (15-37) U/L ALT 196 H (16-63) U/L Alkaline Phosphatase 68 (46-116) U/L Lactate Dehydrogenase (85-227) U/L Troponin I High Sens (<=76) ng/L C-Reactive Protein (<=0.9) mg/dL Total Protein 8.0 (6.4-8.2) g/dL Albumin 3.1 L (3.4-5.0) g/dL Globulin 4.9 Albumin/Globulin Ratio 0.63 Med Orders - Current: Current Medications Hydrocodone Bitart/Acetaminophen (Acetaminophen/Hydrocodone 325-10 Mg Tab) 1 tab PO Q6HR PRN PRN Reason: Pain Last Admin: 09/22/20 20:20 Dose: 1 tab Documented by: Baclofen (Baclofen 10 Mg Tab) 10 mg PO BID PRN PRN Reason: Cramping Last Admin: 09/22/20 20:18 Dose: 10 mg Documented by: Docusate Sodium (Docusate Sodium 100 Mg Cap) 400 mg PO BEDTIME [facility] Last Admin: 09/22/20 20:18 Dose: 400 mg Documented by: Duloxetine HCl (Duloxetine 30 Mg Cap) 60 mg PO DAILY [facility] Enoxaparin Sodium (Enoxaparin 40 Mg/0.4 Ml Syringe) 40 mg SUBCUT DAILY [facility] Last Admin: 09/22/20 19:28 Dose: 40 mg Documented by: Fish Oil (Fish Oil/[place]-3 Fatty Acids 1 Gm Cap) 1 gm PO DAILY [facility] Folic Acid (Folic Acid 0.4 Mg Tab) 0.8 mg PO DAILY [facility] Remdesivir 100 mg/ Sodium (Chloride) 100 mls @ 100 mls/hr IV Q24H [facility] Stop: 09/26/20 16:29 Magnesium Hydroxide (Magnesium Hydroxide 400 Mg/5 Ml Susp 30 Ml Cup) 30 ml PO BEDTIME PRN PRN Reason: Constipation Magnesium Oxide (Magnesium Oxide 400 Mg Tab) 400 mg PO BID [facility] Last Admin: 09/22/20 20:19 Dose: 400 mg Documented by: Morphine Sulfate (Morphine 4 Mg/Ml Syringe) 4 mg IVPUSH Q6H PRN PRN Reason: Pain Last Admin: 09/23/20 07:25 Dose: 4 mg Documented by: Multivitamins/Minerals (Multivitamins With Iron/Calcium/Folic Acid/Minerals Tab) 1 tab PO DAILY [facility] Multivitamins/Minerals (Beta-Carotene (Vitamin A) W/Vitamin C & E Plus Minerals Tab) 1 tab PO BID [facility] Last Admin: 09/22/20 20:19 Dose: 1 tab Documented by: Ondansetron HCl (Ondansetron 4 Mg/2 Ml Sdv) 4 mg IVPUSH Q6H PRN PRN Reason: Nausea Prednisolone Acetate (Prednisolone Acetate 1% Ophth Susp 5 Ml Bottle) 0 ml EY ELF BID YAMEL Last Admin: 09/22/20 20:17 Dose: 1 drop Documented by: Pregabalin (Pregabalin 50 Mg Cap) 300 mg PO TID YAMEL Sodium Chloride (Sodium Chloride 0.9% 10 Ml Syringe) 10 ml FLUSH ASDIRECTED PRN PRN Reason: Keep Vein Open Discontinued Medications Sodium Chloride (Normal Saline) 1,000 mls @ 999 mls/hr IV ONETIME ONE Stop: 09/22/20 13:11 Last Admin: 09/22/20 11:45 Dose: 999 mls/hr Documented by: Remdesivir 200 mg/ Sodium (Chloride) 250 mls @ 250 mls/hr IV ONETIME ONE Stop: 09/22/20 15:59 Last Admin: 09/22/20 17:29 Dose: 250 mls/hr Documented by: Iopamidol (Iopamidol 612 Mg/Ml 100 Ml Bottle) 100 ml IVPUSH ONETIME ONE Stop: 09/22/20 13:53 Last Admin: 09/22/20 14:33 Dose: 100 ml Documented by: Morphine Sulfate (Morphine 4 Mg/Ml Syringe) 4 mg IVPUSH ONETIME ONE Stop: 09/22/20 11:42 Last Admin: 09/22/20 12:10 Dose: 4 mg Documented by: Ondansetron HCl (Ondansetron 4 Mg/2 Ml Sdv) 4 mg IVPUSH ONETIME ONE Stop: 09/22/20 11:50 Last Admin: 09/22/20 12:11 Dose: 4 mg Documented by: - Exam General: Alert, Oriented HEENT: Pupils Equal, Pupils Reactive, EOMI, Mucous Membr. Moist/[place] Neck: Supple Lungs: Normal Respiratory Effort, Decreased Breath Sounds Cardiovascular: Regular Rate, Regular Rhythm GI/Abdominal Exam: Normal Bowel Sounds, Soft, Non-Tender, No Distention, No Mass (Male) Exam: Deferred Back Exam: Normal Inspection, Full Range of Motion Extremities: Normal Inspection, Normal Range of Motion, Non-Tender, No Pedal Edema, Normal Capillary Refill Peripheral Pulses: 4+: Radial (L) Skin: Warm, Dry, Intact Neurological: No New Focal Deficit Psy/Mental Status: Alert, Normal Affect, Normal Mood - Patient Data Lab Results Last 24 hrs: Laboratory Results - last 24 hr 09/22/20 09/22/20 09/22/20 Range/Units 11:40 11:40 11:40 WBC 14.1 H (4.0-10.0) x10^3/uL RBC 5.71 (4.5-6.0) x10^6/uL Hgb 17.2 (14.0-18.0) g/dL Hct 50.0 (40.0-52.0) % MCV 87.6 (78.0-93.0) fL MCH 30.1 (26.0-32.0) pg MCHC 34.4 (32.0-36.0) g/dL RDW Coeff of Preeti 15.7 H (10.0-15.0) % Plt Count 146 (130-400) x10^3/uL Add Manual Diff Yes Neutrophils % (Manual) 73 (50-80) % Band Neutrophils % 5 (0-6) % Lymphocytes % (Manual) 16 L (25-50) % Monocytes % (Manual) 6 (2-11) % Platelet Estimate Adequate Anisocytosis 1+ slight H PT 10.3 (9.9-12.5) SEC INR 0.9 L (2.0-3.5) APTT 22.6 L (25.6-32.8) SEC D-Dimer, Quantitative 1.08 H (<=0.58) mg/LFEU Sodium 138 (136-145) mmol/L Potassium 3.7 (3.5-5.1) mmol/L Chloride 100 (98-107) mmol/L Carbon Dioxide 27 (21-32) mmol/L Anion Gap 14.7 (5-15) mmol/L BUN 28 H (7-18) mg/dL Creatinine 1.1 (0.70-1.30) mg/dL Est Cr Clr Drug Dosing TNP Estimated GFR (MDRD) > 60 Glucose 112 H (70-99) mg/dL Lactic Acid (0.4-2.0) mmol/L Calcium 9.0 (8.5-10.1) mg/dL Corrected Calcium 9.3 (8.5-10.1) mg/dL Magnesium 2.7 H (1.8-2.4) mg/dL Ferritin (26-388) ng/mL Total Bilirubin 0.5 (0.2-1.0) mg/dL AST 129 H (15-37) U/L ALT 207 H (16-63) U/L Alkaline Phosphatase 77 (46-116) U/L Lactate Dehydrogenase 296 H (85-227) U/L Troponin I High Sens 7 (<=76) ng/L C-Reactive Protein 1.9 H (<=0.9) mg/dL Total Protein 8.7 H (6.4-8.2) g/dL Albumin 3.6 (3.4-5.0) g/dL Globulin 5.1 Albumin/Globulin Ratio 0.71 09/22/20 09/22/20 09/23/20 Range/Units 11:40 11:40 07:00 WBC 8.7 (4.0-10.0) x10^3/uL RBC 5.50 (4.5-6.0) x10^6/uL Hgb 16.4 (14.0-18.0) g/dL Hct 48.2 (40.0-52.0) % MCV 87.6 (78.0-93.0) fL MCH 29.8 (26.0-32.0) pg MCHC 34.0 (32.0-36.0) g/dL RDW Coeff of Preeti 15.6 H (10.0-15.0) % Plt Count 146 (130-400) x10^3/uL Add Manual Diff Neutrophils % (Manual) (50-80) % Band Neutrophils % (0-6) % Lymphocytes % (Manual) (25-50) % Monocytes % (Manual) (2-11) % Platelet Estimate Anisocytosis PT (9.9-12.5) SEC INR (2.0-3.5) APTT (25.6-32.8) SEC D-Dimer, Quantitative (<=0.58) mg/LFEU Sodium (136-145) mmol/L Potassium (3.5-5.1) mmol/L Chloride (98-107) mmol/L Carbon Dioxide (21-32) mmol/L Anion Gap (5-15) mmol/L BUN (7-18) mg/dL Creatinine (0.70-1.30) mg/dL Est Cr Clr Drug Dosing Estimated GFR (MDRD) Glucose (70-99) mg/dL Lactic Acid 1.6 (0.4-2.0) mmol/L Calcium (8.5-10.1) mg/dL Corrected Calcium (8.5-10.1) mg/dL Magnesium (1.8-2.4) mg/dL Ferritin 327 (26-388) ng/mL Total Bilirubin (0.2-1.0) mg/dL AST (15-37) U/L ALT (16-63) U/L Alkaline Phosphatase (46-116) U/L Lactate Dehydrogenase (85-227) U/L Troponin I High Sens (<=76) ng/L C-Reactive Protein (<=0.9) mg/dL Total Protein (6.4-8.2) g/dL Albumin (3.4-5.0) g/dL Globulin Albumin/Globulin Ratio // Range/Units 07:00 WBC (4.0-10.0) x10^3/uL RBC (4.5-6.0) x10^6/uL Hgb (14.0-18.0) g/dL Hct (40.0-52.0) % MCV (78.0-93.0) fL MCH (26.0-32.0) pg MCHC (32.0-36.0) g/dL RDW Coeff of Preeti (10.0-15.0) % Plt Count (130-400) x10^3/uL Add Manual Diff Neutrophils % (Manual) (50-80) % Band Neutrophils % (0-6) % Lymphocytes % (Manual) (25-50) % Monocytes % (Manual) (2-11) % Platelet Estimate Anisocytosis PT (9.9-12.5) SEC INR (2.0-3.5) APTT (25.6-32.8) SEC D-Dimer, Quantitative (<=0.58) mg/LFEU Sodium 139 (136-145) mmol/L Potassium 3.9 (3.5-5.1) mmol/L Chloride 103 (98-107) mmol/L Carbon Dioxide 27 (21-32) mmol/L Anion Gap 12.9 (5-15) mmol/L BUN 21 H (7-18) mg/dL Creatinine 0.9 (0.70-1.30) mg/dL Est Cr Clr Drug Dosing 70.72 Estimated GFR (MDRD) > 60 Glucose 94 (70-99) mg/dL Lactic Acid (0.4-2.0) mmol/L Calcium 9.0 (8.5-10.1) mg/dL Corrected Calcium 9.7 (8.5-10.1) mg/dL Magnesium (1.8-2.4) mg/dL Ferritin (26-388) ng/mL Total Bilirubin 0.5 (0.2-1.0) mg/dL AST 112 H (15-37) U/L ALT 196 H (16-63) U/L Alkaline Phosphatase 68 (46-116) U/L Lactate Dehydrogenase (85-227) U/L Troponin I High Sens (<=76) ng/L C-Reactive Protein (<=0.9) mg/dL Total Protein 8.0 (6.4-8.2) g/dL Albumin 3.1 L (3.4-5.0) g/dL Globulin 4.9 Albumin/Globulin Ratio 0.63 Result Diagrams: 09/23/20 07:00 09/23/20 07:00 Sepsis Event Note - Evaluation Sepsis Screening Result: No Definite Risk - Focused Exam Vital Signs: Vital Signs Temp Pulse Resp BP Pulse Ox 09/23/20 06:00 36.7 C 83 18 122/83 91 L 09/23/20 01:37 36.7 C 99 16 132/71 91 L 09/22/20 22:00 88 16 115/67 91 L - Problem List Review Problem List Initiated/Reviewed/Updated: Yes - My Orders Last 24 Hours: My Active Orders 09/22/20 11:37 Sodium Chloride 0.9% [Saline Flush] 10 ml FLUSH ASDIRECTED PRN Blood Culture x2 Reflex Set [OM.PC] Stat Peripheral IV Insertion Adult [OM.PC] Routine 09/22/20 11:40 CULTURE BLOOD [BC] Stat 09/22/20 12:05 CULTURE BLOOD [BC] Stat 09/22/20 13:51 Patient Status [ADT] Routine 09/22/20 15:04 Cardiac Monitoring [RC] 02,06,10,14,18,22 Intake and Output [RC] 06,18 Up With Assistance [RC] , VTE/DVT Education [RC] .PRN Vital Signs [RC] 02,06,10,14,18,22 09/22/20 15:05 Oxygen Therapy [RC] .PRN Code Status [Resuscitation Status] Routine 09/22/20 17:22 Acetaminophen/HYDROcodone [[place] 325-10 MG] 1 tab PO Q6HR PRN Baclofen [Lioresal] 10 mg PO BID PRN Magnesium Hydroxide [Milk of Magnesia] 30 ml PO BEDTIME PRN 09/22/20 Dinner Regular Diet [DIET] Enoxaparin [Lovenox] 40 mg SUBCUT DAILY 09/22/20 18:19 Morphine 4 mg IVPUSH Q6H PRN 09/22/20 20:00 Beta-Carotene(A) w/C & E/Min [Prosight] 1 tab PO BID Docusate Sodium [Colace] 400 mg PO BEDTIME Magnesium Oxide 400 mg PO BID prednisoLONE acetate [Pred Forte 1% Ophth Susp] 0 ml EYELF BID 09/23/20 08:00 DULoxetine [Cymbalta] 60 mg PO DAILY Fish Oil/[place]-3 Fatty Acids [Fish Oil] 1 gm PO DAILY Folic Acid 0.8 mg PO DAILY Multivitamins w-Iron/Ca/FA/Min [Thera M Plus] 1 tab PO DAILY Pregabalin [Lyrica] 300 mg PO TID 09/23/20 08:47 Ondansetron [Zofran] 4 mg IVPUSH Q6H PRN 09/23/20 15:30 Remdesivir 100 mg Sodium Chloride 0.9% [Normal Saline] 100 ml IV Q24H 09/24/20 14:00 HEPATIC FUNCTION PANEL,HFP [CHEM] DAILY 09/24/20 15:30 HEPATIC FUNCTION PANEL,HFP [CHEM] DAILY 09/25/20 14:00 HEPATIC FUNCTION PANEL,HFP [CHEM] DAILY 09/25/20 15:30 HEPATIC FUNCTION PANEL,HFP [CHEM] DAILY 09/26/20 07:00 CBC W/O DIFF,HEMOGRAM [HEME] Q3D 09/26/20 14:00 HEPATIC FUNCTION PANEL,HFP [CHEM] DAILY 09/26/20 15:30 HEPATIC FUNCTION PANEL,HFP [CHEM] DAILY 09/29/20 07:00 CBC W/O DIFF,HEMOGRAM [HEME] Q3D 10/02/20 07:00 CBC W/O DIFF,HEMOGRAM [HEME] Q3D 10/05/20 07:00 CBC W/O DIFF,HEMOGRAM [HEME] Q3D 10/08/20 07:00 CBC W/O DIFF,HEMOGRAM [HEME] Q3D 10/11/20 07:00 CBC W/O DIFF,HEMOGRAM [HEME] Q3D - Plan Plan:: Continue observation admission. Increase [place] 10/325mg to every 4 hours. Increased Morphine 4mg every 4 hours. Start Zofran 4mg IV every 6 hours for nausea. Continue Remdesivir per protocol. Encourage ambulation as he is able in his room. No PT/OT to decrease disease transmission.
[2020-09-23] MEDS ORDERED: Morphine 4 MG/ML Syringe IVPUSH PRN (09:03)
[2020-09-23] MEDS ORDERED: NS + KCl 20mEq/L 1,000 ML IV SCH (09:15)
[2020-09-23] MEDS: Multivitamins with Iron/Calcium/Folic Acid/Minerals Tab PO SCH (09:48)
[2020-09-23] MEDS: Pregabalin 50 MG Cap PO SCH ×3 (09:48→21:08)
[2020-09-23] MEDS: DULoxetine 30 MG Cap PO SCH (09:48)
[2020-09-23] MEDS: Fish Oil/Omega-3 Fatty Acids 1 Gm Cap PO SCH (09:48)
[2020-09-23] MEDS: Beta-Carotene (Vitamin A) w/Vitamin C & E plus Minerals Tab PO SCH ×2 (09:49→21:09)
[2020-09-23] MEDS: Folic Acid 0.4 MG Tab PO SCH (09:49)
[2020-09-23] MEDS: Magnesium Oxide 400 MG Tab PO SCH ×2 (09:49→21:10)
[2020-09-23] MEDS: Enoxaparin 40 MG/0.4 ML Syringe SUBCUT SCH (09:49)
[2020-09-23] MEDS: Sodium Chloride 0.9% 10 ML Syringe FLUSH PRN (09:50)
[2020-09-23] MEDS: prednisoLONE Acetate 1% Ophth Susp 5 ML Bottle EYELF SCH ×2 (09:58→21:13)
[2020-09-23] MEDS: Acetaminophen/HYDROcodone 325-10 MG Tab PO PRN ×2 (10:13→21:11)
[2020-09-23] MEDS: REMDESIVIR 100 MG in Sodium Chloride 0.9% 100 ML IV SCH (16:40)
[2020-09-23] MEDS: Docusate Sodium 100 MG Cap PO SCH (21:09)
[2020-09-24] MEDS: Acetaminophen/HYDROcodone 325-10 MG Tab PO PRN (08:35)
[2020-09-24] MEDS: Beta-Carotene (Vitamin A) w/Vitamin C & E plus Minerals Tab PO SCH ×2 (08:36→20:44)
[2020-09-24] MEDS: Folic Acid 0.4 MG Tab PO SCH (08:36)
[2020-09-24] MEDS: Magnesium Oxide 400 MG Tab PO SCH ×2 (08:36→20:44)
[2020-09-24] MEDS: Fish Oil/Omega-3 Fatty Acids 1 Gm Cap PO SCH (08:36)
[2020-09-24] MEDS: Pregabalin 50 MG Cap PO SCH ×3 (08:36→20:43)
[2020-09-24] MEDS: DULoxetine 30 MG Cap PO SCH (08:36)
[2020-09-24] MEDS: Multivitamins with Iron/Calcium/Folic Acid/Minerals Tab PO SCH (08:36)
[2020-09-24] MEDS: Enoxaparin 40 MG/0.4 ML Syringe SUBCUT SCH (08:36)
[2020-09-24] MEDS: Sodium Chloride 0.9% 10 ML Syringe FLUSH PRN (08:37)
--- NOTE | 2020-09-24 10:21 | CR ---
[id number] RAD/RAD Chest PA or AP 1V EXAM: RAD Chest PA or AP 1V INDICATION: DESATURATION. COMPARISON: September 19, 2020. DISCUSSION: Cardiomediastinal silhouette is stable in size and contour. Right upper lung pulmonary infiltrate. No pneumothorax or pleural effusion. Pulmonary hyperinflation. 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 IMPRESSION: Right upper lung pulmonary infiltrate. Ministerio Sloan DO 09/24/20 1017 Thank you for allowing us to participate in the care of your patient.
[2020-09-24 10:39] LABS: BICARBONATE,ARTERIAL 24 mmol/L (21-28); O2 SATURATION ARTERIAL 96.8 %; PCO2 ARTERIAL 34 mmHG (35-48); PO2 ARTERIAL 84 mmHG (83-108)
[2020-09-24 10:40] LABS: BASE EXCESS ARTERIAL 1 mmol/L ((-2)-(+3))
[2020-09-24 11:01] LABS: CHLORIDE,CL 99 mmol/L (98-107); SODIUM,NA 134 mmol/L (136-145)
[2020-09-24 11:12] LABS: ANION GAP 13.9 mmol/L (5-15)
--- NOTE | 2020-09-24 11:50 | PCM.PN ---
- General Info Date of Service: 09/24/20 Subjective Update: Pt. states that he had a poor night. He is continuing to experience the respirophasic chest pain. CTA of chest performed yesterday was negative for PE. There was evidence of viral pneumonia (in lobar infiltrate noted). He was started on Remdesivir, and this AM he states that he was quite nauseated. He continues to be quite short of breath with activity. Pt. is currently on lovenox for DVT prophylaxis. Pt. is on [place] 10/325mg every 6 hours with morphine 4mg every 6 hours for breakthrough pain. He has not been up to the toilet and is using a urinal. Nursing report patient has been resting well but has not been up moving. He is also continues to complain of pain with deep breaths. He remains weak and needing oxygen while in bed and sleeping. Patient will be transitioned to inpatient since significant improvements have not been made. Hospitalist will round in am. Labs completed today, medications/IV therapy will remain the same. Nursing instructed to assist and get patient up and moving with in the room. If any further decline in status is noted will look at transferring this patient to higher level of care. Nursing and family updated and agree with the plan. Functional Status: Reports: Pain Controlled, Tolerating Diet. Denies: Ambulating (pt has not been up and walking ) - Review of Systems General: Reports: Fatigue, Malaise HEENT: Reports: No Symptoms Pulmonary: Reports: Shortness of Breath, Cough Cardiovascular: Reports: No Symptoms Gastrointestinal: Reports: No Symptoms Genitourinary: Reports: No Symptoms Musculoskeletal: Reports: No Symptoms Skin: Reports: No Symptoms Neurological: Reports: No Symptoms Psychiatric: Reports: No Symptoms - Patient Data Vitals - Most Recent: Last Vital Signs Temp 36.2 C 09/24/20 06:34 Pulse 73 09/24/20 06:34 Resp 16 09/24/20 06:34 BP 123/64 09/24/20 06:34 Pulse Ox 98 09/24/20 08:00 Weight - Most Recent: 92.986 kg I&O - Last 24 Hours: Intake & Output 09/23/20 09/24/20 09/24/20 22:59 06:59 14:59 Intake Total 220 700 Output Total 1100 Balance 220 -400 Lab Results Last 24 Hours: Laboratory Results - last 24 hr 09/24/20 09/24/20 09/24/20 Range/Units 10:12 10:12 10:12 WBC 8.3 (4.0-10.0) x10^3/uL RBC 5.39 (4.5-6.0) x10^6/uL Hgb 16.1 (14.0-18.0) g/dL Hct 46.9 (40.0-52.0) % MCV 87.0 (78.0-93.0) fL MCH 29.9 (26.0-32.0) pg MCHC 34.3 (32.0-36.0) g/dL RDW Coeff of Preeti 15.0 (10.0-15.0) % Plt Count 138 (130-400) x10^3/uL PT 11.6 (9.9-12.5) SEC INR 1.0 L (2.0-3.5) D-Dimer, Quantitative 1.02 H (<=0.58) mg/LFEU ABG pH (7.35-7.45) pH ABG pCO2 (35-48) mmHG ABG pO2 (83-108) mmHG ABG HCO3 (21-28) mmol/L ABG O2 Saturation % ABG Base Excess ((-2)-(+3)) mmol/L FiO2 Sodium (136-145) mmol/L Potassium (3.5-5.1) mmol/L Chloride (98-107) mmol/L Carbon Dioxide (21-32) mmol/L Anion Gap (5-15) mmol/L BUN (7-18) mg/dL Creatinine (0.70-1.30) mg/dL Est Cr Clr Drug Dosing mL/min Estimated GFR (MDRD) Glucose (70-99) mg/dL Lactic Acid (0.4-2.0) mmol/L Calcium (8.5-10.1) mg/dL Corrected Calcium (8.5-10.1) mg/dL Total Bilirubin (0.2-1.0) mg/dL Direct Bilirubin (0.00-0.20) mg/dL AST (15-37) U/L ALT (16-63) U/L Alkaline Phosphatase (46-116) U/L NT-Pro-B Natriuret Pep (<=125) pg/mL Total Protein (6.4-8.2) g/dL Albumin (3.4-5.0) g/dL Globulin Albumin/Globulin Ratio Amylase 38 (25-115) U/L Lipase (73-393) U/L 09/24/20 09/24/20 09/24/20 Range/Units 10:12 10:12 10:12 WBC (4.0-10.0) x10^3/uL RBC (4.5-6.0) x10^6/uL Hgb (14.0-18.0) g/dL Hct (40.0-52.0) % MCV (78.0-93.0) fL MCH (26.0-32.0) pg MCHC (32.0-36.0) g/dL RDW Coeff of Preeti (10.0-15.0) % Plt Count (130-400) x10^3/uL PT (9.9-12.5) SEC INR (2.0-3.5) D-Dimer, Quantitative (<=0.58) mg/LFEU ABG pH (7.35-7.45) pH ABG pCO2 (35-48) mmHG ABG pO2 (83-108) mmHG ABG HCO3 (21-28) mmol/L ABG O2 Saturation % ABG Base Excess ((-2)-(+3)) mmol/L FiO2 Sodium 134 L (136-145) mmol/L Potassium 3.9 (3.5-5.1) mmol/L Chloride 99 (98-107) mmol/L Carbon Dioxide 25 (21-32) mmol/L Anion Gap 13.9 (5-15) mmol/L BUN 21 H (7-18) mg/dL Creatinine 0.9 (0.70-1.30) mg/dL Est Cr Clr Drug Dosing 70.72 mL/min Estimated GFR (MDRD) > 60 Glucose 101 H (70-99) mg/dL Lactic Acid 1.4 (0.4-2.0) mmol/L Calcium 8.6 (8.5-10.1) mg/dL Corrected Calcium 9.5 (8.5-10.1) mg/dL Total Bilirubin 0.4 (0.2-1.0) mg/dL Direct Bilirubin 0.14 (0.00-0.20) mg/dL AST 100 H (15-37) U/L ALT 192 H (16-63) U/L Alkaline Phosphatase 68 (46-116) U/L NT-Pro-B Natriuret Pep 46 (<=125) pg/mL Total Protein 7.3 (6.4-8.2) g/dL Albumin 2.9 L (3.4-5.0) g/dL Globulin 4.4 Albumin/Globulin Ratio 0.66 Amylase (25-115) U/L Lipase 127 (73-393) U/L // Range/Units 10:20 WBC (4.0-10.0) x10^3/uL RBC (4.5-6.0) x10^6/uL Hgb (14.0-18.0) g/dL Hct (40.0-52.0) % MCV (78.0-93.0) fL MCH (26.0-32.0) pg MCHC (32.0-36.0) g/dL RDW Coeff of Preeti (10.0-15.0) % Plt Count (130-400) x10^3/uL PT (9.9-12.5) SEC INR (2.0-3.5) D-Dimer, Quantitative (<=0.58) mg/LFEU ABG pH 7.45 (7.35-7.45) pH ABG pCO2 34 L (35-48) mmHG ABG pO2 84 (83-108) mmHG ABG HCO3 24 (21-28) mmol/L ABG O2 Saturation 96.8 % ABG Base Excess 1 ((-2)-(+3)) mmol/L FiO2 28.00 Sodium (136-145) mmol/L Potassium (3.5-5.1) mmol/L Chloride (98-107) mmol/L Carbon Dioxide (21-32) mmol/L Anion Gap (5-15) mmol/L BUN (7-18) mg/dL Creatinine (0.70-1.30) mg/dL Est Cr Clr Drug Dosing mL/min Estimated GFR (MDRD) Glucose (70-99) mg/dL Lactic Acid (0.4-2.0) mmol/L Calcium (8.5-10.1) mg/dL Corrected Calcium (8.5-10.1) mg/dL Total Bilirubin (0.2-1.0) mg/dL Direct Bilirubin (0.00-0.20) mg/dL AST (15-37) U/L ALT (16-63) U/L Alkaline Phosphatase (46-116) U/L NT-Pro-B Natriuret Pep (<=125) pg/mL Total Protein (6.4-8.2) g/dL Albumin (3.4-5.0) g/dL Globulin Albumin/Globulin Ratio Amylase (25-115) U/L Lipase (73-393) U/L [facility] Results Last 24 Hours: Microbiology 09/22/20 12:05 Aerobic Blood Culture - Preliminary Blood - Venous - Lab Draw NO GROWTH AFTER 1 DAY Anaerobic Blood Culture - Preliminary NO GROWTH AFTER 1 DAY 09/22/20 11:40 Aerobic Blood Culture - Preliminary Blood - Venous NO GROWTH AFTER 1 DAY Anaerobic Blood Culture - Preliminary NO GROWTH AFTER 1 DAY Med Orders - Current: Current Medications Hydrocodone Bitart/Acetaminophen (Acetaminophen/Hydrocodone 325-10 Mg Tab) 1 tab PO Q6HR PRN PRN Reason: Pain Last Admin: 09/23/20 21:11 Dose: 1 tab Documented by: Hydrocodone Bitart/Acetaminophen (Acetaminophen/Hydrocodone 325-10 Mg Tab) 1 tab PO Q4H PRN PRN Reason: Pain (moderate 4-6) Last Admin: 09/24/20 08:35 Dose: 1 tab Documented by: Baclofen (Baclofen 10 Mg Tab) 10 mg PO BID PRN PRN Reason: Cramping Last Admin: 09/22/20 20:18 Dose: 10 mg Documented by: Docusate Sodium (Docusate Sodium 100 Mg Cap) 400 mg PO BEDTIME [facility] Last Admin: 09/23/20 21:09 Dose: 400 mg Documented by: Duloxetine HCl (Duloxetine 30 Mg Cap) 60 mg PO DAILY [facility] Last Admin: 09/24/20 08:36 Dose: 60 mg Documented by: Enoxaparin Sodium (Enoxaparin 40 Mg/0.4 Ml Syringe) 40 mg SUBCUT DAILY [facility] Last Admin: 09/24/20 08:36 Dose: 40 mg Documented by: Fish Oil (Fish Oil/Reading-3 Fatty Acids 1 Gm Cap) 1 gm PO DAILY [facility] Last Admin: 09/24/20 08:36 Dose: 1 gm Documented by: Folic Acid (Folic Acid 0.4 Mg Tab) 0.8 mg PO DAILY [facility] Last Admin: 09/24/20 08:36 Dose: 0.8 mg Documented by: Remdesivir 100 mg/ Sodium (Chloride) 100 mls @ 100 mls/hr IV Q24H [facility] Stop: 09/26/20 15:59 Last Admin: 09/23/20 16:40 Dose: 100 mls/hr Documented by: Magnesium Hydroxide (Magnesium Hydroxide 400 Mg/5 Ml Susp 30 Ml Cup) 30 ml PO BEDTIME PRN PRN Reason: Constipation Magnesium Oxide (Magnesium Oxide 400 Mg Tab) 400 mg PO BID [facility] Last Admin: 09/24/20 08:36 Dose: 400 mg Documented by: Morphine Sulfate (Morphine 4 Mg/Ml Syringe) 4 mg IVPUSH Q4H PRN PRN Reason: Pain Multivitamins/Minerals (Multivitamins With Iron/Calcium/Folic Acid/Minerals Tab) 1 tab PO DAILY [facility] Last Admin: 09/24/20 08:36 Dose: 1 tab Documented by: Multivitamins/Minerals (Beta-Carotene (Vitamin A) W/Vitamin C & E Plus Minerals Tab) 1 tab PO BID [facility] Last Admin: 09/24/20 08:36 Dose: 1 tab Documented by: Ondansetron HCl (Ondansetron 4 Mg/2 Ml Sdv) 4 mg IVPUSH Q6H PRN PRN Reason: Nausea Prednisolone Acetate (Prednisolone Acetate 1% Ophth Susp 5 Ml Bottle) 0 ml EYELF BID [facility] Last Admin: 09/23/20 21:13 Dose: 1 drop Documented by: Pregabalin (Pregabalin 50 Mg Cap) 300 mg PO TID [facility] Last Admin: 09/24/20 08:36 Dose: 300 mg Documented by: Sodium Chloride (Sodium Chloride 0.9% 10 Ml Syringe) 10 ml FLUSH ASDIRECTED PRN PRN Reason: Keep Vein Open Last Admin: 09/24/20 08:37 Dose: 10 ml Documented by: Discontinued Medications Sodium Chloride (Normal Saline) 1,000 mls @ 999 mls/hr IV ONETIME ONE Stop: 09/22/20 13:11 Last Admin: 09/22/20 11:45 Dose: 999 mls/hr Documented by: Remdesivir 200 mg/ Sodium (Chloride) 250 mls @ 250 mls/hr IV ONETIME ONE Stop: 09/22/20 15:59 Last Admin: 09/22/20 17:29 Dose: 250 mls/hr Documented by: Potassium Chloride/Sodium Chloride (Normal Saline With 20 Meq Kcl) 1,000 mls @ 125 mls/hr IV ASDIRECTED YAMEL Iopamidol (Iopamidol 612 Mg/Ml 100 Ml Bottle) 100 ml IVPUSH ONETIME ONE Stop: 09/22/20 13:53 Last Admin: 09/22/20 14:33 Dose: 100 ml Documented by: Morphine Sulfate (Morphine 4 Mg/Ml Syringe) 4 mg IVPUSH ONETIME ONE Stop: 09/22/20 11:42 Last Admin: 09/22/20 12:10 Dose: 4 mg Documented by: Morphine Sulfate (Morphine 4 Mg/Ml Syringe) 4 mg IVPUSH Q6H PRN PRN Reason: Pain Last Admin: 09/23/20 07:25 Dose: 4 mg Documented by: Ondansetron HCl (Ondansetron 4 Mg/2 Ml Sdv) 4 mg IVPUSH ONETIME ONE Stop: 09/22/20 11:50 Last Admin: 09/22/20 12:11 Dose: 4 mg Documented by: - Exam Quality Assessment: Supplemental Oxygen General: Alert, Oriented HEENT: Pupils Equal, Pupils Reactive, EOMI, Mucous Membr. Moist/[place]: Supple Lungs: Normal Respiratory Effort, Decreased Breath Sounds Cardiovascular: Regular Rate, Regular Rhythm GI/Abdominal Exam: Normal Bowel Sounds, Soft, Non-Tender, No Mass Back Exam: Normal Inspection, Full Range of Motion Extremities: Normal Inspection, Normal Range of Motion, Non-Tender Skin: Other (pale) Neurological: No New Focal Deficit Psy/Mental Status: Alert, Normal Affect, Labile Mood - Patient Data Lab Results Last 24 hrs: Laboratory Results - last 24 hr 09/24/20 09/24/20 09/24/20 Range/Units 10:12 10:12 10:12 WBC 8.3 (4.0-10.0) x10^3/uL RBC 5.39 (4.5-6.0) x10^6/uL Hgb 16.1 (14.0-18.0) g/dL Hct 46.9 (40.0-52.0) % MCV 87.0 (78.0-93.0) fL MCH 29.9 (26.0-32.0) pg MCHC 34.3 (32.0-36.0) g/dL RDW Coeff of Preeti 15.0 (10.0-15.0) % Plt Count 138 (130-400) x10^3/uL PT 11.6 (9.9-12.5) SEC INR 1.0 L (2.0-3.5) D-Dimer, Quantitative 1.02 H (<=0.58) mg/LFEU ABG pH (7.35-7.45) pH ABG pCO2 (35-48) mmHG ABG pO2 (83-108) mmHG ABG HCO3 (21-28) mmol/L ABG O2 Saturation % ABG Base Excess ((-2)-(+3)) mmol/L FiO2 Sodium (136-145) mmol/L Potassium (3.5-5.1) mmol/L Chloride (98-107) mmol/L Carbon Dioxide (21-32) mmol/L Anion Gap (5-15) mmol/L BUN (7-18) mg/dL Creatinine (0.70-1.30) mg/dL Est Cr Clr Drug Dosing mL/min Estimated GFR (MDRD) Glucose (70-99) mg/dL Lactic Acid (0.4-2.0) mmol/L Calcium (8.5-10.1) mg/dL Corrected Calcium (8.5-10.1) mg/dL Total Bilirubin (0.2-1.0) mg/dL Direct Bilirubin (0.00-0.20) mg/dL AST (15-37) U/L ALT (16-63) U/L Alkaline Phosphatase (46-116) U/L NT-Pro-B Natriuret Pep (<=125) pg/mL Total Protein (6.4-8.2) g/dL Albumin (3.4-5.0) g/dL Globulin Albumin/Globulin Ratio Amylase 38 (25-115) U/L Lipase (73-393) U/L 09/24/20 09/24/20 09/24/20 Range/Units 10:12 10:12 10:12 WBC (4.0-10.0) x10^3/uL RBC (4.5-6.0) x10^6/uL Hgb (14.0-18.0) g/dL Hct (40.0-52.0) % MCV (78.0-93.0) fL MCH (26.0-32.0) pg MCHC (32.0-36.0) g/dL RDW Coeff of Preeti (10.0-15.0) % Plt Count (130-400) x10^3/uL PT (9.9-12.5) SEC INR (2.0-3.5) D-Dimer, Quantitative (<=0.58) mg/LFEU ABG pH (7.35-7.45) pH ABG pCO2 (35-48) mmHG ABG pO2 (83-108) mmHG ABG HCO3 (21-28) mmol/L ABG O2 Saturation % ABG Base Excess ((-2)-(+3)) mmol/L FiO2 Sodium 134 L (136-145) mmol/L Potassium 3.9 (3.5-5.1) mmol/L Chloride 99 (98-107) mmol/L Carbon Dioxide 25 (21-32) mmol/L Anion Gap 13.9 (5-15) mmol/L BUN 21 H (7-18) mg/dL Creatinine 0.9 (0.70-1.30) mg/dL Est Cr Clr Drug Dosing 70.72 mL/min Estimated GFR (MDRD) > 60 Glucose 101 H (70-99) mg/dL Lactic Acid 1.4 (0.4-2.0) mmol/L Calcium 8.6 (8.5-10.1) mg/dL Corrected Calcium 9.5 (8.5-10.1) mg/dL Total Bilirubin 0.4 (0.2-1.0) mg/dL Direct Bilirubin 0.14 (0.00-0.20) mg/dL AST 100 H (15-37) U/L ALT 192 H (16-63) U/L Alkaline Phosphatase 68 (46-116) U/L NT-Pro-B Natriuret Pep 46 (<=125) pg/mL Total Protein 7.3 (6.4-8.2) g/dL Albumin 2.9 L (3.4-5.0) g/dL Globulin 4.4 Albumin/Globulin Ratio 0.66 Amylase (25-115) U/L Lipase 127 (73-393) U/L 09/24/20 Range/Units 10:20 WBC (4.0-10.0) x10^3/uL RBC (4.5-6.0) x10^6/uL Hgb (14.0-18.0) g/dL Hct (40.0-52.0) % MCV (78.0-93.0) fL MCH (26.0-32.0) pg MCHC (32.0-36.0) g/dL RDW Coeff of Preeti (10.0-15.0) % Plt Count (130-400) x10^3/uL PT (9.9-12.5) SEC INR (2.0-3.5) D-Dimer, Quantitative (<=0.58) mg/LFEU ABG pH 7.45 (7.35-7.45) pH ABG pCO2 34 L (35-48) mmHG ABG pO2 84 (83-108) mmHG ABG HCO3 24 (21-28) mmol/L ABG O2 Saturation 96.8 % ABG Base Excess 1 ((-2)-(+3)) mmol/L FiO2 28.00 Sodium (136-145) mmol/L Potassium (3.5-5.1) mmol/L Chloride (98-107) mmol/L Carbon Dioxide (21-32) mmol/L Anion Gap (5-15) mmol/L BUN (7-18) mg/dL Creatinine (0.70-1.30) mg/dL Est Cr Clr Drug Dosing mL/min Estimated GFR (MDRD) Glucose (70-99) mg/dL Lactic Acid (0.4-2.0) mmol/L Calcium (8.5-10.1) mg/dL Corrected Calcium (8.5-10.1) mg/dL Total Bilirubin (0.2-1.0) mg/dL Direct Bilirubin (0.00-0.20) mg/dL AST (15-37) U/L ALT (16-63) U/L Alkaline Phosphatase (46-116) U/L NT-Pro-B Natriuret Pep (<=125) pg/mL Total Protein (6.4-8.2) g/dL Albumin (3.4-5.0) g/dL Globulin Albumin/Globulin Ratio Amylase (25-115) U/L Lipase (73-393) U/L Result Diagrams: 09/24/20 10:12 09/24/20 10:12 [facility] Results Last 24 hrs: Microbiology 09/22/20 12:05 Aerobic Blood Culture - Preliminary Blood - Venous - Lab Draw NO GROWTH AFTER 1 DAY Anaerobic Blood Culture - Preliminary NO GROWTH AFTER 1 DAY 09/22/20 11:40 Aerobic Blood Culture - Preliminary Blood - Venous NO GROWTH AFTER 1 DAY Anaerobic Blood Culture - Preliminary NO GROWTH AFTER 1 DAY Sepsis Event Note - Evaluation Sepsis Screening Result: No Definite Risk - Focused Exam Vital Signs: Vital Signs Temp Pulse Resp BP Pulse Ox Pulse Ox 09/24/20 08:00 98 09/24/20 06:34 36.2 C 73 16 123/64 97 09/24/20 02:00 36.6 C 65 16 133/64 98 - Problem List & Annotations (1) Weakness SNOMED Code(s): 33196289 Code(s): R53.1 - WEAKNESS Status: Acute Current Visit: Yes (2) Fatigue SNOMED Code(s): 01271557 Code(s): R53.83 - OTHER FATIGUE Status: Acute Current Visit: Yes Qualifiers: Fatigue type: unspecified Qualified Code(s): R53.83 - Other fatigue (3) Respiratory failure SNOMED Code(s): 947651723 Code(s): J96.90 - RESPIRATORY FAILURE, UNSP, UNSP W HYPOXIA OR HYPERCAPNIA Status: Acute Priority: High Current Visit: Yes Qualifiers: Chronicity: acute Respiratory failure complication: hypoxia Qualified Code(s): J96.01 - Acute respiratory failure with hypoxia (4) COVID-19 SNOMED Code(s): 941202393 Code(s): U07.1 - COVID-19 Status: Acute Priority: Medium Current Visit: Yes (5) Nausea & vomiting SNOMED Code(s): 57165006 Code(s): R11.2 - NAUSEA WITH VOMITING, UNSPECIFIED Status: Acute Priority: High Current Visit: No Onset Date: 05/02/15 Qualifiers: Vomiting type: unspecified Vomiting Intractability: non-intractable Qualified Code(s): R11.2 - Nausea with vomiting, unspecified Annotation/Comment:: Likely secondary to constipation and his chronic narcotic use. The patient did not wish to have any magnesium citrate or other therapy in the emergency room - Problem List Review Problem List Initiated/Reviewed/Updated: Yes - My Orders Last 24 Hours: My Active Orders 09/24/20 10:12 PROCALCITONIN [REF] Stat - Assessment Assessment:: 1. Weakness 2. fatigue 3. Covid-19 positive 4. Respiratory failure requiring supplemental O2. - Plan Plan:: 1. Patient switched to acute admission. Hospitalist updated on plan of care 2. Patient to continue using O2 as needed to keep O2 sats above 92% 3. Continue [place] 10/325mg BID 4. Stopped Morphine 4mg every 4 hours. 5. Continue Zofran 4mg IV every 6 hours for nausea. 6. Continue Remdesivir per protocol. 7. Encourage ambulation as he is able in his room. 9. Labs completed today- all within in patients normal limits 10. Chest xray completed today- right lung pulmonary infiltrates noted 11. Patient and nursing staff was updated regarding the plan of care 12. Patient and family are agreeable to the above plan of care
[2020-09-24] MEDS: prednisoLONE Acetate 1% Ophth Susp 5 ML Bottle EYELF SCH ×2 (14:24→20:44)
[2020-09-24] MEDS: REMDESIVIR 100 MG in Sodium Chloride 0.9% 100 ML IV SCH (14:29)
[2020-09-24] MEDS: Docusate Sodium 100 MG Cap PO SCH (20:43)
[2020-09-25] MEDS: Acetaminophen/HYDROcodone 325-10 MG Tab PO PRN ×2 (06:29→17:32)
--- NOTE | 2020-09-25 08:59 | PCM.PN ---
- General Info Date of Service: 09/25/20 Subjective Update: Thuan is a 75yoM who was admitted on initially on observation status on 09/22/20 for COVID pneumonia, hypoxia, and generalized weakness. Did have some lateral chest wall pains and workup was negative for PE. He has been initiated on Remdesivir. Has been able to be weaned off his O2 (was onto RA this am but requesting 1L for comfort). He continues to report SOB with activity and pain in the left lateral chest wall on occasion. I did get paged last evening for report of CP, EKG and troponin were within normal limits. Overall, his clinical status has been improving quite significantly. He has had minimal use of his pain control medication. His laboratory evaluation has improved. He is on day 3 of 4 of Remdisivir. We discussed keeping him for 1 m ore day for monitoring and to allow for the last dose of antivirals 09/26/2020. This may also allow for us to get him linked up with Covid home monitoring given his borderline oxygen needs. He is in agreement to stay for 1 more night. - Review of Systems General: Reports: No Symptoms HEENT: Reports: No Symptoms Pulmonary: Reports: Shortness of Breath, Pleuritic Chest Pain Cardiovascular: Reports: No Symptoms Gastrointestinal: Reports: No Symptoms Genitourinary: Reports: No Symptoms Musculoskeletal: Reports: Other (left lateral chest wall pain) Neurological: Reports: No Symptoms Psychiatric: Reports: No Symptoms - Patient Data Vitals - Most Recent: Last Vital Signs Temp 98.7 F 09/25/20 06:36 Pulse 78 09/25/20 06:36 Resp 14 09/25/20 06:36 BP 120/72 09/25/20 06:36 Pulse Ox 93 L 09/25/20 06:36 Weight - Most Recent: 205 lb I&O - Last 24 Hours: Intake & Output 09/24/20 09/25/20 09/25/20 22:59 06:59 14:59 Intake Total 400 400 Output Total 600 Balance 400 -200 Lab Results Last 24 Hours: Laboratory Results - last 24 hr 09/24/20 09/24/20 09/24/20 Range/Units 10:12 10:12 10:12 WBC 8.3 (4.0-10.0) x10^3/uL RBC 5.39 (4.5-6.0) x10^6/uL Hgb 16.1 (14.0-18.0) g/dL Hct 46.9 (40.0-52.0) % MCV 87.0 (78.0-93.0) fL MCH 29.9 (26.0-32.0) pg MCHC 34.3 (32.0-36.0) g/dL RDW Coeff of Preeti 15.0 (10.0-15.0) % Plt Count 138 (130-400) x10^3/uL PT 11.6 (9.9-12.5) SEC INR 1.0 L (2.0-3.5) D-Dimer, Quantitative 1.02 H (<=0.58) mg/LFEU ABG pH (7.35-7.45) pH ABG pCO2 (35-48) mmHG ABG pO2 (83-108) mmHG ABG HCO3 (21-28) mmol/L ABG O2 Saturation % ABG Base Excess ((-2)-(+3)) mmol/L FiO2 Sodium (136-145) mmol/L Potassium (3.5-5.1) mmol/L Chloride (98-107) mmol/L Carbon Dioxide (21-32) mmol/L Anion Gap (5-15) mmol/L BUN (7-18) mg/dL Creatinine (0.70-1.30) mg/dL Est Cr Clr Drug Dosing mL/min Estimated GFR (MDRD) Glucose (70-99) mg/dL Lactic Acid (0.4-2.0) mmol/L Calcium (8.5-10.1) mg/dL Corrected Calcium (8.5-10.1) mg/dL Total Bilirubin (0.2-1.0) mg/dL Direct Bilirubin (0.00-0.20) mg/dL AST (15-37) U/L ALT (16-63) U/L Alkaline Phosphatase (46-116) U/L Troponin I High Sens (<=76) ng/L NT-Pro-B Natriuret Pep (<=125) pg/mL Total Protein (6.4-8.2) g/dL Albumin (3.4-5.0) g/dL Globulin Albumin/Globulin Ratio Amylase 38 (25-115) U/L Lipase (73-393) U/L 09/24/20 09/24/20 09/24/20 Range/Units 10:12 10:12 10:12 WBC (4.0-10.0) x10^3/uL RBC (4.5-6.0) x10^6/uL Hgb (14.0-18.0) g/dL Hct (40.0-52.0) % MCV (78.0-93.0) fL MCH (26.0-32.0) pg MCHC (32.0-36.0) g/dL RDW Coeff of Preeti (10.0-15.0) % Plt Count (130-400) x10^3/uL PT (9.9-12.5) SEC INR (2.0-3.5) D-Dimer, Quantitative (<=0.58) mg/LFEU ABG pH (7.35-7.45) pH ABG pCO2 (35-48) mmHG ABG pO2 (83-108) mmHG ABG HCO3 (21-28) mmol/L ABG O2 Saturation % ABG Base Excess ((-2)-(+3)) mmol/L FiO2 Sodium 134 L (136-145) mmol/L Potassium 3.9 (3.5-5.1) mmol/L Chloride 99 (98-107) mmol/L Carbon Dioxide 25 (21-32) mmol/L Anion Gap 13.9 (5-15) mmol/L BUN 21 H (7-18) mg/dL Creatinine 0.9 (0.70-1.30) mg/dL Est Cr Clr Drug Dosing 70.72 mL/min Estimated GFR (MDRD) > 60 Glucose 101 H (70-99) mg/dL Lactic Acid 1.4 (0.4-2.0) mmol/L Calcium 8.6 (8.5-10.1) mg/dL Corrected Calcium 9.5 (8.5-10.1) mg/dL Total Bilirubin 0.4 (0.2-1.0) mg/dL Direct Bilirubin 0.14 (0.00-0.20) mg/dL AST 100 H (15-37) U/L ALT 192 H (16-63) U/L Alkaline Phosphatase 68 (46-116) U/L Troponin I High Sens (<=76) ng/L NT-Pro-B Natriuret Pep 46 (<=125) pg/mL Total Protein 7.3 (6.4-8.2) g/dL Albumin 2.9 L (3.4-5.0) g/dL Globulin 4.4 Albumin/Globulin Ratio 0.66 Amylase (25-115) U/L Lipase 127 (73-393) U/L 09/24/20 09/24/20 Range/Units 10:20 23:25 WBC (4.0-10.0) x10^3/uL RBC (4.5-6.0) x10^6/uL Hgb (14.0-18.0) g/dL Hct (40.0-52.0) % MCV (78.0-93.0) fL MCH (26.0-32.0) pg MCHC (32.0-36.0) g/dL RDW Coeff of Preeti (10.0-15.0) % Plt Count (130-400) x10^3/uL PT (9.9-12.5) SEC INR (2.0-3.5) D-Dimer, Quantitative (<=0.58) mg/LFEU ABG pH 7.45 (7.35-7.45) pH ABG pCO2 34 L (35-48) mmHG ABG pO2 84 (83-108) mmHG ABG HCO3 24 (21-28) mmol/L ABG O2 Saturation 96.8 % ABG Base Excess 1 ((-2)-(+3)) mmol/L FiO2 28.00 Sodium (136-145) mmol/L Potassium (3.5-5.1) mmol/L Chloride (98-107) mmol/L Carbon Dioxide (21-32) mmol/L Anion Gap (5-15) mmol/L BUN (7-18) mg/dL Creatinine (0.70-1.30) mg/dL Est Cr Clr Drug Dosing mL/min Estimated GFR (MDRD) Glucose (70-99) mg/dL Lactic Acid (0.4-2.0) mmol/L Calcium (8.5-10.1) mg/dL Corrected Calcium (8.5-10.1) mg/dL Total Bilirubin (0.2-1.0) mg/dL Direct Bilirubin (0.00-0.20) mg/dL AST (15-37) U/L ALT (16-63) U/L Alkaline Phosphatase (46-116) U/L Troponin I High Sens 4 (<=76) ng/L NT-Pro-B Natriuret Pep (<=125) pg/mL Total Protein (6.4-8.2) g/dL Albumin (3.4-5.0) g/dL Globulin Albumin/Globulin Ratio Amylase (25-115) U/L Lipase (73-393) U/L [facility] Results Last 24 Hours: Microbiology 09/22/20 12:05 Aerobic Blood Culture - Preliminary Blood - Venous - Lab Draw NO GROWTH AFTER 2 DAYS Anaerobic Blood Culture - Preliminary NO GROWTH AFTER 2 DAYS 09/22/20 11:40 Aerobic Blood Culture - Preliminary Blood - Venous NO GROWTH AFTER 2 DAYS Anaerobic Blood Culture - Preliminary NO GROWTH AFTER 2 DAYS Med Orders - Current: Current Medications Hydrocodone Bitart/Acetaminophen (Acetaminophen/Hydrocodone 325-10 Mg Tab) 1 tab PO Q6HR PRN PRN Reason: Pain Last Admin: 09/25/20 06:29 Dose: 1 tab Documented by: Hydrocodone Bitart/Acetaminophen (Acetaminophen/Hydrocodone 325-10 Mg Tab) 1 tab PO Q4H PRN PRN Reason: Pain (moderate 4-6) Last Admin: 09/24/20 08:35 Dose: 1 tab Documented by: Baclofen (Baclofen 10 Mg Tab) 10 mg PO BID PRN PRN Reason: Cramping Last Admin: 09/22/20 20:18 Dose: 10 mg Documented by: Docusate Sodium (Docusate Sodium 100 Mg Cap) 400 mg PO BEDTIME [facility] Last Admin: 09/24/20 20:43 Dose: 400 mg Documented by: Duloxetine HCl (Duloxetine 30 Mg Cap) 60 mg PO DAILY [facility] Last Admin: 09/24/20 08:36 Dose: 60 mg Documented by: Enoxaparin Sodium (Enoxaparin 40 Mg/0.4 Ml Syringe) 40 mg SUBCUT DAILY [facility] Last Admin: 09/24/20 08:36 Dose: 40 mg Documented by: Fish Oil (Fish Oil/[place]-3 Fatty Acids 1 Gm Cap) 1 gm PO DAILY [facility] Last Admin: 09/24/20 08:36 Dose: 1 gm Documented by: Folic Acid (Folic Acid 0.4 Mg Tab) 0.8 mg PO DAILY [facility] Last Admin: 09/24/20 08:36 Dose: 0.8 mg Documented by: Remdesivir 100 mg/ Sodium (Chloride) 100 mls @ 100 mls/hr IV Q24H [facility] Stop: 09/26/20 15:59 Last Admin: 09/24/20 14:29 Dose: 100 mls/hr Documented by: Magnesium Hydroxide (Magnesium Hydroxide 400 Mg/5 Ml Susp 30 Ml Cup) 30 ml PO BEDTIME PRN PRN Reason: Constipation Magnesium Oxide (Magnesium Oxide 400 Mg Tab) 400 mg PO BID [facility] Last Admin: 09/24/20 20:44 Dose: 400 mg Documented by: Morphine Sulfate (Morphine 4 Mg/Ml Syringe) 4 mg IVPUSH Q4H PRN PRN Reason: Pain Multivitamins/Minerals (Multivitamins With Iron/Calcium/Folic Acid/Minerals Tab) 1 tab PO DAILY [facility] Last Admin: 09/24/20 08:36 Dose: 1 tab Documented by: Multivitamins/Minerals (Beta-Carotene (Vitamin A) W/Vitamin C & E Plus Minerals Tab) 1 tab PO BID [facility] Last Admin: 09/24/20 20:44 Dose: 1 tab Documented by: Ondansetron HCl (Ondansetron 4 Mg/2 Ml Sdv) 4 mg IVPUSH Q6H PRN PRN Reason: Nausea Prednisolone Acetate (Prednisolone Acetate 1% Ophth Susp 5 Ml Bottle) 0 ml EYELF BID [facility] Last Admin: 09/24/20 20:44 Dose: 1 drop Documented by: Pregabalin (Pregabalin 50 Mg Cap) 300 mg PO TID [facility] Last Admin: 09/24/20 20:43 Dose: 300 mg Documented by: Sodium Chloride (Sodium Chloride 0.9% 10 Ml Syringe) 10 ml FLUSH ASDIRECTED PRN PRN Reason: Keep Vein Open Last Admin: 09/24/20 08:37 Dose: 10 ml Documented by: Discontinued Medications Sodium Chloride (Normal Saline) 1,000 mls @ 999 mls/hr IV ONETIME ONE Stop: 09/22/20 13:11 Last Admin: 09/22/20 11:45 Dose: 999 mls/hr Documented by: Remdesivir 200 mg/ Sodium (Chloride) 250 mls @ 250 mls/hr IV ONETIME ONE Stop: 09/22/20 15:59 Last Admin: 09/22/20 17:29 Dose: 250 mls/hr Documented by: Potassium Chloride/Sodium Chloride (Normal Saline With 20 Meq Kcl) 1,000 mls @ 125 mls/hr IV ASDIRECTED YAMEL Iopamidol (Iopamidol 612 Mg/Ml 100 Ml Bottle) 100 ml IVPUSH ONETIME ONE Stop: 09/22/20 13:53 Last Admin: 09/22/20 14:33 Dose: 100 ml Documented by: Morphine Sulfate (Morphine 4 Mg/Ml Syringe) 4 mg IVPUSH ONETIME ONE Stop: 09/22/20 11:42 Last Admin: 09/22/20 12:10 Dose: 4 mg Documented by: Morphine Sulfate (Morphine 4 Mg/Ml Syringe) 4 mg IVPUSH Q6H PRN PRN Reason: Pain Last Admin: 09/23/20 07:25 Dose: 4 mg Documented by: Ondansetron HCl (Ondansetron 4 Mg/2 Ml Sdv) 4 mg IVPUSH ONETIME ONE Stop: 09/22/20 11:50 Last Admin: 09/22/20 12:11 Dose: 4 mg Documented by: - Exam Quality Assessment: Supplemental Oxygen (for comfort, sating in the low 90s on RA) General: Alert, Oriented HEENT: Mucous Membr. Moist/[place] Neck: Supple Lungs: Normal Respiratory Effort, Rhonchi (bilateral lung bases, L>R) Cardiovascular: Regular Rate, Regular Rhythm GI/Abdominal Exam: No Distention Back Exam: Normal Inspection Extremities: Normal Inspection, Non-Tender Skin: Warm, Dry Neurological: No New Focal Deficit Psy/Mental Status: Alert, Normal Affect, Normal Mood - Patient Data Lab Results Last 24 hrs: Laboratory Results - last 24 hr 09/24/20 09/24/20 09/24/20 Range/Units 10:12 10:12 10:12 WBC 8.3 (4.0-10.0) x10^3/uL RBC 5.39 (4.5-6.0) x10^6/uL Hgb 16.1 (14.0-18.0) g/dL Hct 46.9 (40.0-52.0) % MCV 87.0 (78.0-93.0) fL MCH 29.9 (26.0-32.0) pg MCHC 34.3 (32.0-36.0) g/dL RDW Coeff of Preeti 15.0 (10.0-15.0) % Plt Count 138 (130-400) x10^3/uL PT 11.6 (9.9-12.5) SEC INR 1.0 L (2.0-3.5) D-Dimer, Quantitative 1.02 H (<=0.58) mg/LFEU ABG pH (7.35-7.45) pH ABG pCO2 (35-48) mmHG ABG pO2 (83-108) mmHG ABG HCO3 (21-28) mmol/L ABG O2 Saturation % ABG Base Excess ((-2)-(+3)) mmol/L FiO2 Sodium (136-145) mmol/L Potassium (3.5-5.1) mmol/L Chloride (98-107) mmol/L Carbon Dioxide (21-32) mmol/L Anion Gap (5-15) mmol/L BUN (7-18) mg/dL Creatinine (0.70-1.30) mg/dL Est Cr Clr Drug Dosing mL/min Estimated GFR (MDRD) Glucose (70-99) mg/dL Lactic Acid (0.4-2.0) mmol/L Calcium (8.5-10.1) mg/dL Corrected Calcium (8.5-10.1) mg/dL Total Bilirubin (0.2-1.0) mg/dL Direct Bilirubin (0.00-0.20) mg/dL AST (15-37) U/L ALT (16-63) U/L Alkaline Phosphatase (46-116) U/L Troponin I High Sens (<=76) ng/L NT-Pro-B Natriuret Pep (<=125) pg/mL Total Protein (6.4-8.2) g/dL Albumin (3.4-5.0) g/dL Globulin Albumin/Globulin Ratio Amylase 38 (25-115) U/L Lipase (73-393) U/L 09/24/20 09/24/20 09/24/20 Range/Units 10:12 10:12 10:12 WBC (4.0-10.0) x10^3/uL RBC (4.5-6.0) x10^6/uL Hgb (14.0-18.0) g/dL Hct (40.0-52.0) % MCV (78.0-93.0) fL MCH (26.0-32.0) pg MCHC (32.0-36.0) g/dL RDW Coeff of Preeti (10.0-15.0) % Plt Count (130-400) x10^3/uL PT (9.9-12.5) SEC INR (2.0-3.5) D-Dimer, Quantitative (<=0.58) mg/LFEU ABG pH (7.35-7.45) pH ABG pCO2 (35-48) mmHG ABG pO2 (83-108) mmHG ABG HCO3 (21-28) mmol/L ABG O2 Saturation % ABG Base Excess ((-2)-(+3)) mmol/L FiO2 Sodium 134 L (136-145) mmol/L Potassium 3.9 (3.5-5.1) mmol/L Chloride 99 (98-107) mmol/L Carbon Dioxide 25 (21-32) mmol/L Anion Gap 13.9 (5-15) mmol/L BUN 21 H (7-18) mg/dL Creatinine 0.9 (0.70-1.30) mg/dL Est Cr Clr Drug Dosing 70.72 mL/min Estimated GFR (MDRD) > 60 Glucose 101 H (70-99) mg/dL Lactic Acid 1.4 (0.4-2.0) mmol/L Calcium 8.6 (8.5-10.1) mg/dL Corrected Calcium 9.5 (8.5-10.1) mg/dL Total Bilirubin 0.4 (0.2-1.0) mg/dL Direct Bilirubin 0.14 (0.00-0.20) mg/dL AST 100 H (15-37) U/L ALT 192 H (16-63) U/L Alkaline Phosphatase 68 (46-116) U/L Troponin I High Sens (<=76) ng/L NT-Pro-B Natriuret Pep 46 (<=125) pg/mL Total Protein 7.3 (6.4-8.2) g/dL Albumin 2.9 L (3.4-5.0) g/dL Globulin 4.4 Albumin/Globulin Ratio 0.66 Amylase (25-115) U/L Lipase 127 (73-393) U/L 09/24/20 09/24/20 Range/Units 10:20 23:25 WBC (4.0-10.0) x10^3/uL RBC (4.5-6.0) x10^6/uL Hgb (14.0-18.0) g/dL Hct (40.0-52.0) % MCV (78.0-93.0) fL MCH (26.0-32.0) pg MCHC (32.0-36.0) g/dL RDW Coeff of Preeti (10.0-15.0) % Plt Count (130-400) x10^3/uL PT (9.9-12.5) SEC INR (2.0-3.5) D-Dimer, Quantitative (<=0.58) mg/LFEU ABG pH 7.45 (7.35-7.45) pH ABG pCO2 34 L (35-48) mmHG ABG pO2 84 (83-108) mmHG ABG HCO3 24 (21-28) mmol/L ABG O2 Saturation 96.8 % ABG Base Excess 1 ((-2)-(+3)) mmol/L FiO2 28.00 Sodium (136-145) mmol/L Potassium (3.5-5.1) mmol/L Chloride (98-107) mmol/L Carbon Dioxide (21-32) mmol/L Anion Gap (5-15) mmol/L BUN (7-18) mg/dL Creatinine (0.70-1.30) mg/dL Est Cr Clr Drug Dosing mL/min Estimated GFR (MDRD) Glucose (70-99) mg/dL Lactic Acid (0.4-2.0) mmol/L Calcium (8.5-10.1) mg/dL Corrected Calcium (8.5-10.1) mg/dL Total Bilirubin (0.2-1.0) mg/dL Direct Bilirubin (0.00-0.20) mg/dL AST (15-37) U/L ALT (16-63) U/L Alkaline Phosphatase (46-116) U/L Troponin I High Sens 4 (<=76) ng/L NT-Pro-B Natriuret Pep (<=125) pg/mL Total Protein (6.4-8.2) g/dL Albumin (3.4-5.0) g/dL Globulin Albumin/Globulin Ratio Amylase (25-115) U/L Lipase (73-393) U/L Result Diagrams: 09/24/20 10:12 09/24/20 10:12 [facility] Results Last 24 hrs: Microbiology 09/22/20 12:05 Aerobic Blood Culture - Preliminary Blood - Venous - Lab Draw NO GROWTH AFTER 2 DAYS Anaerobic Blood Culture - Preliminary NO GROWTH AFTER 2 DAYS 09/22/20 11:40 Aerobic Blood Culture - Preliminary Blood - Venous NO GROWTH AFTER 2 DAYS Anaerobic Blood Culture - Preliminary NO GROWTH AFTER 2 DAYS Sepsis Event Note - Evaluation Sepsis Screening Result: No Definite Risk - Focused Exam Vital Signs: Vital Signs Temp Pulse Resp BP Pulse Ox 09/25/20 06:36 98.7 F 78 14 120/72 93 L 09/25/20 02:48 97.8 F 72 16 142/75 H 92 L 09/24/20 21:40 98.4 F 81 16 125/64 95 - Problem List & Annotations (1) Pneumonia due to COVID-19 virus SNOMED Code(s): 114758695947348853 Code(s): U07.1 - COVID-19; J12.82 - PNEUMONIA DUE TO CORONAVIRUS DISEASE 2019 Status: Acute Current Visit: Yes (2) Weakness SNOMED Code(s): 65333776 Code(s): R53.1 - WEAKNESS Status: Acute Current Visit: Yes - Problem List Review Problem List Initiated/Reviewed/Updated: Yes - My Orders Last 24 Hours: My Active Orders 09/24/20 21:40 EKG 12 Lead [EKG Documentation Completion] [RC] STAT - Plan Plan:: Thuan is a 75-year-old male who is hospital day 4 for admission for weakness, fatigue, and COVID pneumonia. COVID Pneumonia Hypoxia - Patient initially admitted with respiratory failure requiring supplemental oxygen - CXR with expansion of pneumonia from LLL to RLL as well - Clinical status slowly improving - On day 3 of 4 of Remdesivir Plan: - Continue inpatient stay, tomorrow is 4/4 of antiviral - Encouraged incentrive spirometry and ambulation - supplemental O2 as needed; if still has demand tomorrow will get him set up with [facility] O2 monitoring - Repeat basic labs as well Weakness Fatigue - Patient severely run down from baseline Plan: - Encourage ambulation as possible - IS given today as well Diet: regular DVT:Lovenox SQ CODE: DNR/DNI Disposition: Clinical status continues to improve. Anticipate one more midnight. We'll give last dose of antiviral tomorrow. Pending oxygen need we will get him hooked up with [place] home oxygen monitoring program.
[2020-09-25] MEDS: DULoxetine 30 MG Cap PO SCH (12:04)
[2020-09-25] MEDS: Pregabalin 50 MG Cap PO SCH ×3 (12:04→20:19)
[2020-09-25] MEDS: Folic Acid 0.4 MG Tab PO SCH (12:04)
[2020-09-25] MEDS: Multivitamins with Iron/Calcium/Folic Acid/Minerals Tab PO SCH (12:04)
[2020-09-25] MEDS: Enoxaparin 40 MG/0.4 ML Syringe SUBCUT SCH (12:04)
[2020-09-25] MEDS: Beta-Carotene (Vitamin A) w/Vitamin C & E plus Minerals Tab PO SCH ×2 (12:04→20:20)
[2020-09-25] MEDS: Fish Oil/Omega-3 Fatty Acids 1 Gm Cap PO SCH (12:04)
[2020-09-25] MEDS: prednisoLONE Acetate 1% Ophth Susp 5 ML Bottle EYELF SCH ×2 (12:05→20:21)
[2020-09-25] MEDS: Magnesium Oxide 400 MG Tab PO SCH ×2 (12:05→20:20)
[2020-09-25] MEDS: REMDESIVIR 100 MG in Sodium Chloride 0.9% 100 ML IV SCH (16:33)
[2020-09-25] MEDS: Sodium Chloride 0.9% 10 ML Syringe FLUSH PRN (20:18)
[2020-09-25] MEDS: Docusate Sodium 100 MG Cap PO SCH (20:19)
[2020-09-25] MEDS ORDERED: Melatonin 3 MG Tab PO ONE (21:00)
[2020-09-26 07:06] LABS: CHLORIDE,CL 101 mmol/L (98-107); SODIUM,NA 137 mmol/L (136-145)
[2020-09-26 07:07] LABS: ANION GAP 8.9 mmol/L (5-15)
[2020-09-26] MEDS: Acetaminophen/HYDROcodone 325-10 MG Tab PO PRN (11:39)
[2020-09-26] MEDS: Pregabalin 50 MG Cap PO SCH ×2 (11:40→16:06)
[2020-09-26] MEDS: Fish Oil/Omega-3 Fatty Acids 1 Gm Cap PO SCH (11:41)
[2020-09-26] MEDS: Beta-Carotene (Vitamin A) w/Vitamin C & E plus Minerals Tab PO SCH (11:41)
[2020-09-26] MEDS: Folic Acid 0.4 MG Tab PO SCH (11:41)
[2020-09-26] MEDS: Magnesium Oxide 400 MG Tab PO SCH (11:41)
[2020-09-26] MEDS: DULoxetine 30 MG Cap PO SCH (11:41)
[2020-09-26] MEDS: Multivitamins with Iron/Calcium/Folic Acid/Minerals Tab PO SCH (11:41)
[2020-09-26] MEDS: prednisoLONE Acetate 1% Ophth Susp 5 ML Bottle EYELF SCH (11:43)
[2020-09-26] MEDS: Enoxaparin 40 MG/0.4 ML Syringe SUBCUT SCH (11:47)
[2020-09-26] MEDS: REMDESIVIR 100 MG in Sodium Chloride 0.9% 100 ML IV SCH ×2 (11:48→16:06)
--- NOTE | 2020-09-26 13:23 | PCM.DCSUM1 ---
Discharge Summary - Hospital Course Free Text/Narrative:: Thuan is a 75yoM who was admitted initially on observation status on 09/22/20 for COVID pneumonia, hypoxia, and generalized weakness. Did have some lateral chest wall pains and workup was negative for PE. He was initiated on Remdesivir. Has been able to be weaned down on his O2 (sating low 90s on RA), prefers 1L for comfort. He was changed to inpatient status on 09/24/20 given ongoing need for O2 and wanting to finish the course of Remdisivir. He did well throughout the weekend. Vitals, labs, and clinical exam looking good today. Still has some left lateral chest wall pleuritic-type pain. We will plan to discharge him today after his last dose of Remdisivir. We would ask for him to follow-up with his PCP in 1 weeks time (Montez Etienne) and consideration of repeat CMP at that time to watch his liver enzymes (these have been trending downward). Advised for patient to continue with his incentive spirometry, up and ambulating as much as possible, and plan to stay off work for this week (PCP can clear for return). NO changes to his home medication regiment were made. - Discharge Data Discharge Date: 09/26/20 Discharge Disposition: Home, Self-Care 01 Condition: Good - Referral to Home Health Primary Care Physician: KAYLEEN Fontenot - Discharge Diagnosis/Problem(s) (1) Pneumonia due to COVID-19 virus SNOMED Code(s): 119239914345749542 ICD Code: U07.1 - COVID-19; J12.82 - PNEUMONIA DUE TO CORONAVIRUS DISEASE 2019 Status: Acute Current Visit: Yes (2) Weakness SNOMED Code(s): 59073630 ICD Code: R53.1 - WEAKNESS Status: Acute Current Visit: Yes - Discharge Plan *PRESCRIPTION DRUG MONITORING PROGRAM REVIEWED*: Not Applicable *COPY OF PRESCRIPTION DRUG MONITORING REPORT IN PATIENT LUZ: Not Applicable Home Medications: Home Meds Acai Conti Extract [Acai Conti] 1 tab PO BID 06/09/13 [History] Docusate Sodium [Stool Softener] 400 mg PO BEDTIME 06/09/13 [History] Folic Acid 800 mcg PO DAILY 06/09/13 [History] Ginkgo Biloba 1 tab PO DAILY 06/09/13 [History] Multivitamin [Multi-Vitamin Daily] 1 each PO DAILY 06/09/13 [History] Baclofen 10 mg PO BID PRN 05/02/15 [History] DULoxetine [Cymbalta] 60 mg PO DAILY 05/02/15 [History] Magnesium Hydroxide [Milk of Magnesia] 30 ml PO BEDTIME PRN 03/30/16 [History] Pregabalin [Lyrica] 300 mg PO TID 03/30/16 [History] Hydrocodone/Acetaminophen [[place] 10-325 Tablet] 1 tab PO Q6HR PRN 04/17/16 [History] Licorice Root Extract [Licorice Root] 1 cap PO BID 04/17/16 [History] Magnesium Oxide [Magnesium] 1 tab PO BID 04/17/16 [History] Melatonin 20 - 30 mg PO BEDTIME PRN 04/17/16 [History] [place]-3 Fatty Acids [Fish Oil] 300 mg PO DAILY 04/17/16 [History] Vits A,C,E/Lutein/Minerals [Healthy Eyes] 1 cap PO BID 04/17/16 [History] prednisoLONE Acetate [Prednisolone Acetate] 1 drop EYELF BID 04/17/16 [History] Naproxen [Naprosyn] 1 tab PO BID PRN 09/22/20 [History] Forms: ED Department Discharge Referrals: Montez Etienne PA [Primary Care Provider] - - Discharge Summary/Plan Comment DC Time >30 min.: No - Review of Systems General: Reports: Weakness, Fatigue HEENT: Reports: No Symptoms Pulmonary: Reports: Pleuritic Chest Pain, Cough Cardiovascular: Reports: No Symptoms Gastrointestinal: Reports: Nausea Genitourinary: Reports: No Symptoms Musculoskeletal: Reports: No Symptoms Skin: Reports: No Symptoms Neurological: Reports: No Symptoms Psychiatric: Reports: No Symptoms - Patient Data Vitals - Most Recent: Last Vital Signs Temp 98 F 09/26/20 06:48 Pulse 81 09/26/20 06:48 Resp 16 09/26/20 06:48 BP 125/70 09/26/20 06:48 Pulse Ox 96 09/26/20 06:48 Weight - Most Recent: 205 lb I&O - Last 24 hours: Intake & Output 09/25/20 09/26/20 09/26/20 22:59 06:59 14:59 Intake Total 700 800 Output Total 800 1100 Balance -100 -300 Lab Results - Last 24 hrs: Laboratory Results - last 24 hr 09/26/20 09/26/20 Range/Units 06:40 06:40 WBC 7.9 (4.0-10.0) x10^3/uL RBC 5.46 (4.5-6.0) x10^6/uL Hgb 16.3 (14.0-18.0) g/dL Hct 47.8 (40.0-52.0) % MCV 87.5 (78.0-93.0) fL MCH 29.9 (26.0-32.0) pg MCHC 34.1 (32.0-36.0) g/dL RDW Coeff of Preeti 15.0 (10.0-15.0) % Plt Count 161 (130-400) x10^3/uL Sodium 137 (136-145) mmol/L Potassium 4.9 (3.5-5.1) mmol/L Chloride 101 (98-107) mmol/L Carbon Dioxide 32 (21-32) mmol/L Anion Gap 8.9 (5-15) mmol/L BUN 20 H (7-18) mg/dL Creatinine 1.0 (0.70-1.30) mg/dL Est Cr Clr Drug Dosing 63.65 mL/min Estimated GFR (MDRD) > 60 Glucose 117 H (70-99) mg/dL Calcium 9.2 (8.5-10.1) mg/dL Corrected Calcium 10.2 H (8.5-10.1) mg/dL Total Bilirubin 0.4 (0.2-1.0) mg/dL AST 80 H (15-37) U/L ALT 145 H (16-63) U/L Alkaline Phosphatase 78 (46-116) U/L Total Protein 7.6 (6.4-8.2) g/dL Albumin 2.8 L (3.4-5.0) g/dL Globulin 4.8 Albumin/Globulin Ratio 0.58 RADHA Results - Last 24 hrs: Microbiology 09/22/20 12:05 Aerobic Blood Culture - Preliminary Blood - Venous - Lab Draw NO GROWTH AFTER 4 DAYS Anaerobic Blood Culture - Preliminary NO GROWTH AFTER 4 DAYS 09/22/20 11:40 Aerobic Blood Culture - Preliminary Blood - Venous NO GROWTH AFTER 4 DAYS Anaerobic Blood Culture - Preliminary NO GROWTH AFTER 4 DAYS Med Orders - Current: Current Medications Hydrocodone Bitart/Acetaminophen (Acetaminophen/Hydrocodone 325-10 Mg Tab) 1 tab PO Q6HR PRN PRN Reason: Pain Last Admin: 09/25/20 17:32 Dose: 1 tab Documented by: Hydrocodone Bitart/Acetaminophen (Acetaminophen/Hydrocodone 325-10 Mg Tab) 1 tab PO Q4H PRN PRN Reason: Pain (moderate 4-6) Last Admin: 09/26/20 11:39 Dose: 1 tab Documented by: Baclofen (Baclofen 10 Mg Tab) 10 mg PO BID PRN PRN Reason: Cramping Last Admin: 09/22/20 20:18 Dose: 10 mg Documented by: Docusate Sodium (Docusate Sodium 100 Mg Cap) 400 mg PO BEDTIME [facility] Last Admin: 09/25/20 20:19 Dose: 400 mg Documented by: Duloxetine HCl (Duloxetine 30 Mg Cap) 60 mg PO DAILY [facility] Last Admin: 09/26/20 11:41 Dose: 60 mg Documented by: Enoxaparin Sodium (Enoxaparin 40 Mg/0.4 Ml Syringe) 40 mg SUBCUT DAILY [facility] Last Admin: 09/26/20 11:47 Dose: 40 mg Documented by: Fish Oil (Fish Oil/[place]-3 Fatty Acids 1 Gm Cap) 1 gm PO DAILY [facility] Last Admin: 09/26/20 11:41 Dose: 1 gm Documented by: Folic Acid (Folic Acid 0.4 Mg Tab) 0.8 mg PO DAILY [facility] Last Admin: 09/26/20 11:41 Dose: 0.8 mg Documented by: Remdesivir 100 mg/ Sodium (Chloride) 100 mls @ 100 mls/hr IV Q24H [facility] Stop: 09/26/20 15:59 Last Admin: 09/26/20 11:48 Dose: 100 mls/hr Documented by: Magnesium Hydroxide (Magnesium Hydroxide 400 Mg/5 Ml Susp 30 Ml Cup) 30 ml PO BEDTIME PRN PRN Reason: Constipation Magnesium Oxide (Magnesium Oxide 400 Mg Tab) 400 mg PO BID [facility] Last Admin: 09/26/20 11:41 Dose: 400 mg Documented by: Morphine Sulfate (Morphine 4 Mg/Ml Syringe) 4 mg IVPUSH Q4H PRN PRN Reason: Pain Multivitamins/Minerals (Multivitamins With Iron/Calcium/Folic Acid/Minerals Tab) 1 tab PO DAILY [facility] Last Admin: 09/26/20 11:41 Dose: 1 tab Documented by: Multivitamins/Minerals (Beta-Carotene (Vitamin A) W/Vitamin C & E Plus Minerals Tab) 1 tab PO BID [facility] Last Admin: 09/26/20 11:41 Dose: 1 tab Documented by: Ondansetron HCl (Ondansetron 4 Mg/2 Ml Sdv) 4 mg IVPUSH Q6H PRN PRN Reason: Nausea Prednisolone Acetate (Prednisolone Acetate 1% Ophth Susp 5 Ml Bottle) 0 ml EYELF BID [facility] Last Admin: 09/26/20 11:43 Dose: 1 drop Documented by: Pregabalin (Pregabalin 50 Mg Cap) 300 mg PO TID [facility] Last Admin: 09/26/20 11:40 Dose: 300 mg Documented by: Sodium Chloride (Sodium Chloride 0.9% 10 Ml Syringe) 10 ml FLUSH ASDIRECTED PRN PRN Reason: Keep Vein Open Last Admin: 09/25/20 20:18 Dose: 10 ml Documented by: Discontinued Medications Sodium Chloride (Normal Saline) 1,000 mls @ 999 mls/hr IV ONETIME ONE Stop: 09/22/20 13:11 Last Admin: 09/22/20 11:45 Dose: 999 mls/hr Documented by: Remdesivir 200 mg/ Sodium (Chloride) 250 mls @ 250 mls/hr IV ONETIME ONE Stop: 09/22/20 15:59 Last Admin: 09/22/20 17:29 Dose: 250 mls/hr Documented by: Potassium Chloride/Sodium Chloride (Normal Saline With 20 Meq Kcl) 1,000 mls @ 125 mls/hr IV ASDIRECTED [facility] Iopamidol (Iopamidol 612 Mg/Ml 100 Ml Bottle) 100 ml IVPUSH ONETIME ONE Stop: 09/22/20 13:53 Last Admin: 09/22/20 14:33 Dose: 100 ml Documented by: Melatonin (Melatonin 3 Mg Tab) 9 mg PO ONETIME ONE Stop: 09/25/20 21:01 Last Admin: 09/25/20 21:47 Dose: 9 mg Documented by: Morphine Sulfate (Morphine 4 Mg/Ml Syringe) 4 mg IVPUSH ONETIME ONE Stop: 09/22/20 11:42 Last Admin: 09/22/20 12:10 Dose: 4 mg Documented by: Morphine Sulfate (Morphine 4 Mg/Ml Syringe) 4 mg IVPUSH Q6H PRN PRN Reason: Pain Last Admin: 09/23/20 07:25 Dose: 4 mg Documented by: Ondansetron HCl (Ondansetron 4 Mg/2 Ml Sdv) 4 mg IVPUSH ONETIME ONE Stop: 09/22/20 11:50 Last Admin: 09/22/20 12:11 Dose: 4 mg Documented by: - Exam General: Reports: Alert, Oriented HEENT: Reports: EOMI, Mucous Membr. Moist/[place] Lungs: Reports: Normal Respiratory Effort, Crackles (bilateral bases, L>R) Cardiovascular: Reports: Regular Rate, Regular Rhythm GI/Abdominal Exam: Soft, No Distention Back Exam: Reports: Normal Inspection Extremities: Non-Tender, No Pedal Edema Skin: Reports: Warm, Dry, Intact Psy/Mental Status: Reports: Alert, Normal Affect, Normal Mood
[2020-09-26 14:51] VITALS: BP 129/76; PULSE 76
== END 2020-09-26 16:40 | disposition home or self-care (01) | DRG 177 ==
LOC: VM.ED 10:48 → VM.MS 13:51 → OBSVTOIN 09-24 12:33
PROVIDERS: ADMIT Physician Assistant; ATTEND Family Medicine
PROC: XW033E5 Introduction of Remdesivir Anti-infective into Peripheral Vein, Percutaneous Approach, New Technology Group 5 (ICD-10-PCS; principal; 2020-09-24)
DX: U07.1 COVID-19 (principal); J12.82 Pneumonia due to coronavirus disease 2019; J96.01 Acute respiratory failure with hypoxia; Z66 Do not resuscitate; E78.00 Pure hypercholesterolemia, unspecified; K59.09 Other constipation; M19.90 Unspecified osteoarthritis, unspecified site; F11.20 Opioid dependence, uncomplicated; F41.9 Anxiety disorder, unspecified; Z86.14 Personal history of Methicillin resistant Staphylococcus aureus infection; F32.9 Major depressive disorder, single episode, unspecified; D64.9 Anemia, unspecified; Z98.49 Cataract extraction status, unspecified eye; Z90.49 Acquired absence of other specified parts of digestive tract; R53.1 Weakness; R53.83 Other fatigue; J96.90 Respiratory failure, unspecified, unspecified whether with hypoxia or hypercapnia; R11.2 Nausea with vomiting, unspecified; Z98.52 Vasectomy status; Z98.890 Other specified postprocedural states; Z79.899 Other long term (current) drug therapy; Z88.0 Allergy status to penicillin; Z91.013 Allergy to seafood; Z91.018 Allergy to other foods; Z79.891 Long term (current) use of opiate analgesic
CPT/HCPCS: 36415; 36600; 71045; 71275; 80053; 82150; 82248; 82728; 82803; 83605; 83615; 83690; 83735; 83880; 84145; 84484; 85025; 85027; 85379; 85610; 85730; 86140; 87040; 93005; 94760; 96365; 96372; 96374; 96375; 96376; 99225; 99232; 99285-25; A9270-GY; G0378; J1650; J2270; J2405; J7030; J7050; Q9967

== ENCOUNTER 2021-01-28 17:29 | Emergency (ER) | payer MEDICARE, OTHER ==
[2021-01-28] MEDS ORDERED: Sodium Chloride 0.9% 10 ML Syringe FLUSH PRN (18:34)
[2021-01-28] MEDS ORDERED: Morphine 4 MG/ML Syringe IVPUSH ONE (18:35)
[2021-01-28] MEDS ORDERED: Ondansetron 4 MG/2 ML SDV IVPUSH ONE (18:35)
[2021-01-28] MEDS ORDERED: Ketorolac 15 MG/ML SDV IVPUSH ONE (18:36)
[2021-01-28] MEDS ORDERED: Sodium Chloride 0.9% 1,000 ML IV SCH (18:45)
--- NOTE | 2021-01-28 18:53 | CR ---
[id number] RAD/RAD Chest PA And Lateral EXAM: RAD Chest PA And Lateral INDICATION: RT SIDED CHEST PAIN COMPARISON: September 24, 2020. DISCUSSION/IMPRESSION: Cardiomediastinal silhouette is normal in size and contour. Lungs are clear. No pleural effusion or pneumothorax. No visible rib fracture Wallace Nuñez MD 01/28/21 [phone] Thank you for allowing us to participate in the care of your patient.
[2021-01-28 19:06] LABS: ANION GAP 17.8 mmol/L (5-15); CHLORIDE,CL 103 mmol/L (98-107); SODIUM,NA 140 mmol/L (136-145)
[2021-01-28 19:24] VITALS: BP 115/63; PULSE 81
[2021-01-28] MEDS ORDERED: Take Home: Acetaminophen/HYDROcodone 325-5 MG, 5 Tab Pack PO ONE (19:50)
--- NOTE | 2021-01-30 05:24 | EDM.PDOC ---
ED HPI GENERAL MEDICAL PROBLEM - General Chief Complaint: General Stated Complaint: POSSIBLE COVID Time Seen by Provider: 01/28/21 20:10 Source of Information: Reports: Patient History Limitations: Reports: No Limitations - History of Present Illness INITIAL COMMENTS - FREE TEXT/NARRATIVE: Pt. presents to ER with complaints of R sided posterior lower chest pain. He states that he has also had some discomfort radiating into the R lateral abdomen. He also reported to L sided discomfort as well at one point. Pt. states that these are similar symptoms to when he had covid pneumonia. Denies any fever or chills. No substernal chest pain. He states that the pain increases when he moves or takes a deep breath. Pt. states that he noticed the pain moved after urinating. Pt. denies any nausea or vomiting. No melena, hematochezia, or hematemesis. Denies any lightheadedness. Onset Date: 01/27/21 Location: Reports: Chest, Abdomen, Back Right Posterior Chest Pain Score (Numeric/FACES): 8 - Related Data Allergies Allergy/AdvReac Type Severity Reaction Status Date / Time fish derived Allergy Anaphylactic Verified 01/28/21 19:16 Shock Penicillins Allergy Rash Verified 01/28/21 19:16 pork derived (porcine) Allergy Anaphylactic Verified 01/28/21 19:16 Shock beef derived products Allergy Anaphylactic Uncoded 01/28/21 19:16 Shock poultry Allergy Anaphylactic Uncoded 01/28/21 19:16 Shock shellfish -derived products Allergy Anaphylactic Uncoded 01/28/21 19:16 Shock Home Meds: Home Meds Acai Conti Extract [Acai Conti] 1 tab PO BID 06/09/13 [History] Docusate Sodium [Stool Softener] 400 mg PO BEDTIME 06/09/13 [History] Folic Acid 800 mcg PO DAILY 06/09/13 [History] Ginkgo Biloba 1 tab PO DAILY 06/09/13 [History] Multivitamin [Multi-Vitamin Daily] 1 each PO DAILY 06/09/13 [History] Baclofen 10 mg PO BID PRN 05/02/15 [History] DULoxetine [Cymbalta] 60 mg PO DAILY 05/02/15 [History] Magnesium Hydroxide [Milk of Magnesia] 30 ml PO BEDTIME PRN 03/30/16 [History] Pregabalin [Lyrica] 300 mg PO TID 03/30/16 [History] Hydrocodone/Acetaminophen [[place] 10-325 Tablet] 1 tab PO Q6HR PRN 04/17/16 [History] Licorice Root Extract [Licorice Root] 1 cap PO BID 04/17/16 [History] Magnesium Oxide [Magnesium] 1 tab PO BID 04/17/16 [History] Melatonin 20 - 30 mg PO BEDTIME PRN 04/17/16 [History] [place]-3 Fatty Acids [Fish Oil] 300 mg PO DAILY 04/17/16 [History] Vits A,C,E/Lutein/Minerals [Healthy Eyes] 1 cap PO BID 04/17/16 [History] prednisoLONE Acetate [Prednisolone Acetate] 1 drop EYELF BID 04/17/16 [History] Naproxen [Naprosyn] 1 tab PO BID PRN 09/22/20 [History] Past Medical History HEENT History: Reports: Cataract Cardiovascular History: Reports: High Cholesterol Respiratory History: Reports: None Gastrointestinal History: Reports: Chronic Constipation Genitourinary History: Reports: None Musculoskeletal History: Reports: Osteoarthritis Neurological History: Reports: Concussion Psychiatric History: Reports: Addiction, Anxiety, Depression Other Psychiatric History: opiod addiction/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- pain contract current with [employer] [place] Endocrine/Metabolic History: Reports: None Hematologic History: Reports: Anemia Oncologic (Cancer) History: Reports: None Dermatologic History: Reports: Decubitus Ulcer - Infectious Disease History Infectious Disease History: Reports: MRSA - Past Surgical History Head Surgeries/Procedures: Reports: None HEENT Surgical History: Reports: Cataract Surgery, Other (See Below) Other HEENT Surgeries/Procedures: left eye cataract removal 2007 Cardiovascular Surgical History: Reports: None Respiratory Surgical History: Reports: None GI Surgical History: Reports: Appendectomy, Hernia, Inguinal Male Surgical History: Reports: Vasectomy Neurological Surgical History: Reports: None Musculoskeletal Surgical History: Reports: Arthroscopic Procedure, Shoulder Surgery, Other (See Below) Other Musculoskeletal Surgeries/Procedures:: arthoscopic rotator cuff repair to left 1996. arthoscopic rotator cuff repair to right 1981. arthoplasty elbow total prosthetic replacement 2004. shoulder arthoplasty right 10/27/2013. steriod epidural 02/14/2016 - Past Imaging History Past Imaging History: Reports: CAT Scan, Stress Testing, Venous Doppler Social & Family History - Family History Family Medical History: No Pertinent Family History - Tobacco Use Tobacco Use Status *Q: Never Tobacco User - Caffeine Use Caffeine Use: Reports: None - Recreational Drug Use Recreational Drug Use: Yes Recreational Drug Type: Reports: Marijuana/Hashish - Living Situation & Occupation Living situation: Reports: Occupation: Employed ED ROS GENERAL - Review of Systems Review Of Systems: See Below Constitutional: Reports: No Symptoms HEENT: Reports: No Symptoms Respiratory: Reports: Pleuritic Chest Pain Cardiovascular: Reports: No Symptoms Endocrine: Reports: No Symptoms GI/Abdominal: Reports: No Symptoms : Reports: No Symptoms Musculoskeletal: Reports: Back Pain Skin: Reports: Rash Neurological: Reports: No Symptoms Psychiatric: Reports: No Symptoms Hematologic/Lymphatic: Reports: No Symptoms Immunologic: Reports: No Symptoms ED EXAM, GENERAL - Physical Exam Exam: See Below (radiates into low back, Lateral abdomen) Exam Limited By: No Limitations General Appearance: Alert, WD/WN, No Apparent Distress Head: Atraumatic, Normocephalic Neck: Normal Inspection, Supple, Non-Tender, Full Range of Motion Respiratory/Chest: No Respiratory Distress, Lungs Clear, Normal Breath Sounds, No Accessory Muscle Use, Other (Pain on palpation across lower posterior chest.) Cardiovascular: Normal Peripheral Pulses, Regular Rate, Rhythm, No Edema, No Gallop Peripheral Pulses: 4+: Radial (R) GI/Abdominal: Soft, Tender (Pain radiates into ) Back Exam: Decreased Range of Motion, Muscle Spasm. No: CVA Tenderness (L), CVA Tenderness (R) Extremities: Normal Inspection, Normal Range of Motion, Non-Tender, No Pedal Edema, Normal Capillary Refill Neurological: Alert, Oriented, CN II-XII Intact, Normal Cognition, Normal Gait, Normal Reflexes, No Motor/Sensory Deficits Psychiatric: Normal Affect, Normal Mood Skin Exam: Warm, Dry, Intact, Other (some discreet areas of erythema to skin of back in area of discomfort. No open areas. No pustules or other raised lesion noted. Pt. is exquisitely tender with even very light palpation of the area.) Course - Vital Signs Last Recorded V/S: Last Vital Signs Temp 36.9 C 01/28/21 19:19 Pulse 81 01/28/21 19:19 Resp 20 01/28/21 19:19 BP 115/63 01/28/21 19:19 Pulse Ox 98 01/28/21 19:19 - Orders/Labs/Meds Labs: Laboratory Tests 01/28/21 01/28/21 01/28/21 Range/Units 17:35 18:43 18:43 WBC 6.1 (4.0-10.0) x10^3/uL RBC 5.40 (4.5-6.0) x10^6/uL Hgb 16.4 (14.0-18.0) g/dL Hct 47.5 (40.0-52.0) % MCV 88.0 (78.0-93.0) fL MCH 30.4 (26.0-32.0) pg MCHC 34.5 (32.0-36.0) g/dL RDW Coeff of Preeti 13.6 (10.0-15.0) % Plt Count 203 (130-400) x10^3/uL Immature Gran % (Auto) 0.00 (0.00-0.43) % Neut % (Auto) 49.3 L (50.0-80.0) % Lymph % (Auto) 34.2 (25.0-50.0) % [place] % (Auto) 12.3 H (2.0-11.0) % Eos % (Auto) 2.9 (0.0-4.0) % Baso % (Auto) 1.3 H (0.2-1.2) % Neut # (Auto) 3.0 (1.8-7.7) x10^3/uL Lymph # (Auto) 2.1 (1.0-4.8) x10^3/uL [place] # (Auto) 0.8 (0.0-0.8) x10^3/uL Eos # (Auto) 0.2 (0.0-0.5) x10^3/uL Baso # (Auto) 0.1 (0.0-0.2) x10^3/uL Immature Gran # (Auto) 0.00 (0.00-0.07) x10^3/uL PT 10.6 (9.9-12.5) SEC INR 1.0 L (2.0-3.5) Sodium (136-145) mmol/L Potassium (3.5-5.1) mmol/L Chloride (98-107) mmol/L Carbon Dioxide (21-32) mmol/L Anion Gap (5-15) mmol/L BUN (7-18) mg/dL Creatinine (0.70-1.30) mg/dL Est Cr Clr Drug Dosing Estimated GFR (MDRD) Glucose (70-99) mg/dL Calcium (8.5-10.1) mg/dL Corrected Calcium (8.5-10.1) mg/dL Total Bilirubin (0.2-1.0) mg/dL AST (15-37) U/L ALT (16-63) U/L Alkaline Phosphatase (46-116) U/L C-Reactive Protein (<=0.9) mg/dL Total Protein (6.4-8.2) g/dL Albumin (3.4-5.0) g/dL Globulin Albumin/Globulin Ratio Urine Color (YELLOW) Urine Appearance (CLEAR) Urine pH (5.0-8.0) Ur Specific [place] Urine Protein (NEGATIVE) mg/dL Urine Glucose (UA) (NEGATIVE) mg/dL Urine Ketones (NEGATIVE) mg/dL Urine Occult Blood (NEGATIVE) Urine Nitrite (NEGATIVE) Urine Bilirubin (NEGATIVE) Urine Urobilinogen (0.2) EU/dL Ur Leukocyte Esterase (NEGATIVE) SARS CoV-2 RNA Rapid WILIAN Negative (NEGATIVE) 01/28/21 01/28/21 Range/Units 18:43 19:30 WBC (4.0-10.0) x10^3/uL RBC (4.5-6.0) x10^6/uL Hgb (14.0-18.0) g/dL Hct (40.0-52.0) % MCV (78.0-93.0) fL MCH (26.0-32.0) pg MCHC (32.0-36.0) g/dL RDW Coeff of Preeti (10.0-15.0) % Plt Count (130-400) x10^3/uL Immature Gran % (Auto) (0.00-0.43) % Neut % (Auto) (50.0-80.0) % Lymph % (Auto) (25.0-50.0) % [place] % (Auto) (2.0-11.0) % Eos % (Auto) (0.0-4.0) % Baso % (Auto) (0.2-1.2) % Neut # (Auto) (1.8-7.7) x10^3/uL Lymph # (Auto) (1.0-4.8) x10^3/uL [place] # (Auto) (0.0-0.8) x10^3/uL Eos # (Auto) (0.0-0.5) x10^3/uL Baso # (Auto) (0.0-0.2) x10^3/uL Immature Gran # (Auto) (0.00-0.07) x10^3/uL PT (9.9-12.5) SEC INR (2.0-3.5) Sodium 140 (136-145) mmol/L Potassium 3.8 (3.5-5.1) mmol/L Chloride 103 (98-107) mmol/L Carbon Dioxide 23 (21-32) mmol/L Anion Gap 17.8 H (5-15) mmol/L BUN 11 (7-18) mg/dL Creatinine 1.0 (0.70-1.30) mg/dL Est Cr Clr Drug Dosing TNP Estimated GFR (MDRD) > 60 Glucose 119 H (70-99) mg/dL Calcium 9.0 (8.5-10.1) mg/dL Corrected Calcium 9.1 (8.5-10.1) mg/dL Total Bilirubin 0.3 (0.2-1.0) mg/dL AST 86 H (15-37) U/L ALT 146 H (16-63) U/L Alkaline Phosphatase 74 (46-116) U/L C-Reactive Protein < 0.2 (<=0.9) mg/dL Total Protein 7.8 (6.4-8.2) g/dL Albumin 3.9 (3.4-5.0) g/dL Globulin 3.9 Albumin/Globulin Ratio 1.00 Urine Color Yellow (YELLOW) Urine Appearance Clear (CLEAR) Urine pH 7.0 (5.0-8.0) Ur Specific [place] 1.015 Urine Protein Negative (NEGATIVE) mg/dL Urine Glucose (UA) Negative (NEGATIVE) mg/dL Urine Ketones Negative (NEGATIVE) mg/dL Urine Occult Blood Negative (NEGATIVE) Urine Nitrite Negative (NEGATIVE) Urine Bilirubin Negative (NEGATIVE) Urine Urobilinogen 0.2 (0.2) EU/dL Ur Leukocyte Esterase Negative (NEGATIVE) SARS CoV-2 RNA Rapid WILIAN (NEGATIVE) Meds: Medications Discontinued Medications Generic Name Dose Route Start Last Admin Trade Name Jose PRN Reason Stop Dose Admin Hydrocodone Bitart/Acetaminophen 2 packet 01/28/21 19:50 01/28/21 20:46 Take Home: Acetaminophen/Hydrocodone 325-5 Mg, 5 Tab Pack PO 01/28/21 19:51 2 packet ONETIME ONE Administration Sodium Chloride 1,000 mls @ 1,000 mls/hr 01/28/21 18:45 01/28/21 18:46 Normal Saline IV 1,000 mls/hr ASDIRECTED YAMEL Administration Ketorolac Tromethamine 15 mg 01/28/21 18:36 01/28/21 18:47 Ketorolac 15 Mg/Ml Sdv IVPUSH 01/28/21 18:37 15 mg ONETIME ONE Administration Morphine Sulfate 4 mg 01/28/21 18:35 01/28/21 18:47 Morphine 4 Mg/Ml Syringe IVPUSH 01/28/21 18:36 4 mg ONETIME ONE Administration Ondansetron HCl 4 mg 01/28/21 18:35 01/28/21 18:47 Ondansetron 4 Mg/2 Ml Sdv IVPUSH 01/28/21 18:36 4 mg ONETIME ONE Administration Sodium Chloride 10 ml 01/28/21 18:34 Sodium Chloride 0.9% 10 Ml Syringe FLUSH ASDIRECTED PRN Keep Vein Open - Radiology Interpretation Free Text/Narrative:: chest x-ray negative Departure - Departure Time of Disposition: 21:00 Disposition: Home, Self-Care 01 Clinical Impression: Back pain - Discharge Information Instructions: Acetaminophen; Hydrocodone tablets or capsules, Acute Back Pain, Adult Referrals: PCP,Not In Area [Primary Care Provider] - Forms: ED Department Discharge Additional Instructions: Home to rest. Continue with current medications. [place] 5/325mg 1 every 4-6 hours as needed for pain. Call the ER at [phone] if you notice any increased redness or blisters in the area. Recheck in clinic in 7-10 days. Sepsis Event Note (ED) - Evaluation Sepsis Screening Result: No Definite Risk - Problem List Review Problem List Initiated/Reviewed/Updated: Yes - Assessment/Plan Plan: Pt. was discharged. Discomfort likely musculoskeletal in nature, given the widespread discomfort across back and down into abdomen. Advised to watch of increased redness/lesions in this area, as shingles can manifest with symptoms like this. He was not treated, as there were only a few areas of erythema to the area. Pt. was started on a short course of norco for discomfort. Advised to recheck in clinic in 7-10 days. Return if increased discomfort, redness, shortness of breath, substernal chest pain.
== END 2021-01-28 20:10 | disposition home or self-care (01) ==
LOC: VM.ED 17:29
DX: M54.5 Low back pain (principal); E78.00 Pure hypercholesterolemia, unspecified; Z88.0 Allergy status to penicillin; Z91.013 Allergy to seafood; Z91.018 Allergy to other foods; Z20.822 Contact with and (suspected) exposure to COVID-19
CPT/HCPCS: 71046; 80053; 81003; 85025; 85610; 86140; 96374; 96375; 99284; 99285-25; A9270-GY; J1885; J2270; J2405; J7030; U0002

== ENCOUNTER 2023-08-29 10:03 | Emergency (ER) | payer MEDICARE ==
[2023-08-29] MEDS ORDERED: Naloxone 0.4 MG/ML SDV IVPUSH PRN (10:20)
[2023-08-29] MEDS ORDERED: Ondansetron 4 MG/2 ML SDV IVPUSH PRN (10:22)
[2023-08-29] MEDS: HYDROmorphone 1 MG/ML Syringe IVPUSH ONE ×2 (10:29→13:41)
[2023-08-29] MEDS: Sodium Chloride 0.9% 1,000 ML IV ONE (10:30)
[2023-08-29 10:32] LABS: APPEARANCE,URINE CLEAR (CLEAR); BILIRUBIN,URINE SMALL (NEGATIVE); COLOR,URINE DARK YELLOW (YELLOW); GLUCOSE,URINE NEGATIVE (NEGATIVE); KETONES,URINE NEGATIVE (NEGATIVE); LEUKOCYTE ESTERASE,URINE NEGATIVE (NEGATIVE); NITRITE,URINE NEGATIVE (NEGATIVE); OCCULT BLOOD,URINE NEGATIVE (NEGATIVE); PH,URINE 5.5 (5.0-8.0); PROTEIN,URINE 30 mg/dL (NEGATIVE); UROBILINOGEN,URINE 0.2 EU/dL (0.2)
[2023-08-29 10:33] LABS: BASOPHILS ABSOLUTE AUTO 0.1 x10^3/uL (0.0-0.2); BASOPHILS PERCENT AUTO 0.6 % (0.2-1.2); EOSINOPHILS ABSOLUTE AUTO 0.1 x10^3/uL (0.0-0.5); EOSINOPHILS PERCENT AUTO 1.5 % (0.0-4.0); HEMATOCRIT 47.2 % (40.0-52.0); HEMOGLOBIN 15.9 g/dL (14.0-18.0); IMMATURE GRAN ABSOLUTE AUTO 0.01 x10^3/uL (0.00-0.07); LYMPHOCYTES ABSOLUTE AUTO 1.4 x10^3/uL (1.0-4.8); LYMPHOCYTES PERCENT AUTO 16.1 % (25.0-50.0); MEAN CORPUSCULAR HEMOGLOBIN 30.2 pg (26.0-32.0); MEAN CORPUSCULAR HGB CONC 33.7 g/dL (32.0-36.0); MEAN CORPUSCULAR VOLUME 89.6 fL (78.0-93.0); MONOCYTES ABSOLUTE AUTO 0.7 x10^3/uL (0.0-0.8); MONOCYTES PERCENT AUTO 8.2 % (2.0-11.0); NEUTROPHILS ABSOLUTE AUTO 6.3 x10^3/uL (1.8-7.7); NEUTROPHILS PERCENT AUTO 73.5 % (50.0-80.0); PLATELET COUNT,PLT 200 x10^3/uL (130-400); RED BLOOD CELL COUNT 5.27 x10^6/uL (4.5-6.0); WHITE BLOOD CELL COUNT,WBC 8.6 x10^3/uL (4.0-10.0)
[2023-08-29 10:39] LABS: BACTERIA,URINE RARE /HPF (NOT SEEN); MUCUS,URINE MODERATE /LPF (NOT SEEN); RBC,URINE 0-5 /HPF (NOT SEEN); SQUAMOUS EPITHELIAL CELLS,UR NOT SEEN /HPF (NOT SEEN); WBC,URINE 0-5 /HPF (NOT SEEN)
[2023-08-29 10:50] LABS: A/G RATIO 0.91; ALANINE AMINOTRANSFERASE,ALT 51 U/L (16-63); ALBUMIN 4.1 g/dL (3.4-5.0); ALKALINE PHOSPHATASE 164 U/L (46-116); ASPARTATE AMNIOTRANSFERASE,AST 64 U/L (15-37); BILIRUBIN TOTAL 0.6 mg/dL (0.2-1.0); BLOOD UREA NITROGEN,BUN 17 mg/dL (7-18); C-REACTIVE PROTEIN 0.87 mg/dL (<=0.50); CALCIUM 9.6 mg/dL (8.5-10.1); CARBON DIOXIDE,CO2 25 mmol/L (21-32); CHLORIDE,CL 101 mmol/L (98-107); CREATININE 1.1 mg/dL (0.70-1.30); GLUCOSE RANDOM 120 mg/dL (70-99); LIPASE 30 U/L (19-71); PROTEIN TOTAL,TP 8.6 g/dL (6.4-8.2); SODIUM,NA 140 mmol/L (136-145)
[2023-08-29 10:51] LABS: ESTIMATED GFR 70 mL/min (>=60)
[2023-08-29] MEDS: Iopamidol 612 MG/ML 100 ML Bottle IVPUSH ONE (11:38)
[2023-08-29 14:38] VITALS: BP 115/70; PULSE 64
== END 2023-08-29 14:20 | disposition home or self-care (01) ==
LOC: VM.ED 10:03
DX: K80.20 Calculus of gallbladder without cholecystitis without obstruction (principal); K76.89 Other specified diseases of liver; Z88.0 Allergy status to penicillin; Z91.013 Allergy to seafood; Z91.048 Other nonmedicinal substance allergy status; Z79.899 Other long term (current) drug therapy
CPT/HCPCS: 71045; 74177; 80053; 81001; 83690; 85025; 86140; 96361; 96374; 96376; 99284; J1170; J7030; Q9967